=== PATIENT | female | born 1970 | race Asian ===

== ENCOUNTER → 2016-06-29 | Outpatient (CLI) | payer OTHER ==
[~2016-06-29] MED LIST: /ESOM40CA PO; DEPA500T PO; HYDR25TA8 PO; LISI20TA5 PO; MECL25TA2 PO; NASCOBAL; PERCOCET PO; TOPR100T PO
--- NOTE | 2016-06-29 15:16 | REP ---
Digital diagnostic bilateral mammography with CAD and focused left breast sonography: History: Left breast lump for the last 1 week. Painful. 8 o'clock position inferomedially. Comparison mammography August 26, 2012. Mammographic findings: A skin marker is affixed to the skin at the site of the palpable lump, which projects inferiorly and medially. Routine views of the left breast are augmented by magnified focal spot compression CC, MLO and true MLO views. Mammographic images demonstrate that the breast parenchyma remains predominately fat replaced. There is no evidence of soft tissue density, architectural distortion, skin thickening or mass lesion in the inferomedial quadrant of the left breast or elsewhere on either side. Normal appearing lymph nodes are visible on the right, unchanged. Right breast is unchanged and unremarkable. Sonographic findings: The left breast is examined sonographically in the area of the palpable lump medially. Homogeneous background fatty echotexture is seen by ultrasound. No cyst or mass is observed. No architectural distortion seen. Impression: BIRADS category 2 benign bilateral breast imaging. This negative report should not dissuade one from biopsy of a palpable lump depending on its clinical characteristics. Clinical follow-up is advised. Annual screening mammography is recommended. BI-RADS/ACR category 2 mammogram. Benign finding(s). Routine annual screening mammography (for women over age 40). This mammogram was interpreted with the aid of an FDA-approved computer-aided detection system. The patient states she/he had a clinical breast exam in June 2015. The patient letter being requested is M2 . Signed by Omega Guerra MD 06/29/2016 04:51 P
== END ==
LOC: M RAD 13:23
PROVIDERS: ATTEND Midwife
DX: N63 Unspecified lump in breast (principal); N64.4 Mastodynia

== ENCOUNTER 2016-08-17 06:48 | Emergency (ER) | payer OTHER ==
[~2016-08-17] VITALS: Ht 162.6 cm; Wt 83.9 kg
[2016-08-17 07:03] VITALS: BP 137/85
[2016-08-17] MEDS ORDERED: BENT10CA PO (07:20)
[2016-08-17] MEDS ORDERED: LEVO175T2 PO (07:20)
[2016-08-17] MEDS ORDERED: CHLO125TA PO (07:20)
[2016-08-17] MEDS ORDERED: MULTLIQ7 PO (07:20)
[2016-08-17] MEDS ORDERED: CALC500T36 PO (07:20)
[2016-08-17] MEDS ORDERED: NAPR500T2 PO (07:20)
[2016-08-17] MEDS ORDERED: ATEN25TA PO (07:20)
[2016-08-17] MEDS ORDERED: LINZ290C PO (07:20)
[2016-08-17] MEDS ORDERED: INDO50CA PO (07:47)
== END 2016-08-17 08:06 | disposition home or self-care (01) ==
LOC: M ED 07:53
DX: M79.645 Pain in left finger(s) (principal); I10 Essential (primary) hypertension; G47.00 Insomnia, unspecified; G43.909 Migraine, unspecified, not intractable, without status migrainosus; K21.9 Gastro-esophageal reflux disease without esophagitis; E89.0 Postprocedural hypothyroidism; Z85.850 Personal history of malignant neoplasm of thyroid; Z79.899 Other long term (current) drug therapy; Z88.5 Allergy status to narcotic agent; Z91.013 Allergy to seafood; Z91.018 Allergy to other foods; J30.1 Allergic rhinitis due to pollen

== ENCOUNTER → 2016-10-06 | Outpatient (CLI) | payer OTHER ==
[~2016-10-06] MED LIST changes: +ATEN25TA PO; +BENT10CA PO; +CALC500T36 PO; +CHLO125TA PO; +INDO50CA PO; +LEVO175T2 PO; +LINZ290C PO; +MULTLIQ7 PO; +NAPR500T2 PO
[2016-10-06 14:15] LABS: FREE T4 1.56 NG/DL (0.76-1.46)
== END ==
LOC: M SMT 08:10
PROVIDERS: ATTEND Physician Assistant Medical
DX: E89.0 Postprocedural hypothyroidism (principal)

== ENCOUNTER → 2016-10-10 | Outpatient (CLI) | payer OTHER ==
[2016-10-10 19:34] LABS: VITAMIN B12 LEVEL 517 PG/ML (247-911)
[2016-10-10 20:09] LABS: ALBUMIN 3.6 GM/DL (3.2-5.2); ALBUMIN/GLOBULIN RATIO 0.88 (1.00-1.93); ALKALINE PHOSPHATASE 72 U/L (45-117); ALT/SGPT 21 U/L (12-78); ANION GAP 6 MEQ/L (8-16); AST/SGOT 20 U/L (15-37); BILIRUBIN,TOTAL 0.4 MG/DL (0.2-1.0); BLOOD UREA NITROGEN 11 MG/DL (7-18); CALCIUM LEVEL 9.1 MG/DL (8.5-10.1); CARBON DIOXIDE LEVEL 32 MEQ/L (21-32); CHLORIDE LEVEL 101 MEQ/L (98-107); CREATININE FOR GFR 0.66 MG/DL (0.55-1.02); GLOMERULAR FILTRATION RATE > 60.0 (>58); GLUCOSE, FASTING 96 MG/DL (70-105); POTASSIUM SERUM 4.2 MEQ/L (3.5-5.1); SODIUM LEVEL 139 MEQ/L (136-145); TOTAL PROTEIN 7.7 GM/DL (6.4-8.2); URIC ACID 6.6 MG/DL (2.6-6.0)
[2016-10-10 20:14] LABS: BASO % 0.4 % (0.0-1.0); EOS # 0.1 K/mm3 (0.0-0.50); EOS % 1.4 % (0.0-3.0); LARGE UNSTAINED CELL # 0.2 K/mm3 (0.0-0.4); LARGE UNSTAINED CELL % 2.3 % (0.0-4.0); LYMPH # 3.1 K/mm3 (1.5-4.5); LYMPH % 39.7 % (24.0-44.0); MEAN CORPUSCULAR HEMOGLOBIN 27.2 pg (27.0-33.0); MEAN CORPUSCULAR HGB CONC 31.7 g/dl (32.0-36.5); MEAN CORPUSCULAR VOLUME 85.7 fl (80.0-96.0); MONO # 0.5 K/mm3 (0.0-0.8); NEUTROPHILS # 3.7 K/mm3 (1.8-7.7); NEUTROPHILS % 50.1 % (36.0-66.0); PLATELET COUNT, AUTOMATED 225 k/mm3 (150-450); RED CELL DISTRIBUTION WIDTH 12.6 % (11.5-14.5); WHITE BLOOD COUNT 7.4 K/mm3 (4.0-10.0)
[2016-10-10 21:14] LABS: ERYTHROCYTE SEDIMENTATION RATE 16 mm/hr (0-20)
[2016-10-13 00:06] LABS: Lyme Disease IgG/IgM Antibodie <0.91 ISR (0.00-0.90); Lyme Disease IgM Ab Quantitati <0.80 index (0.00-0.79)
== END ==
LOC: M SMT 12:19
PROVIDERS: ATTEND Internal Medicine Rheumatology
DX: M35.9 Systemic involvement of connective tissue, unspecified (principal); Z79.899 Other long term (current) drug therapy; M10.09 Idiopathic gout, multiple sites

== ENCOUNTER 2016-11-02 08:36 | Emergency (ER) | payer OTHER ==
[~2016-11-02] VITALS: Ht 162.6 cm; Wt 84.4 kg
[2016-11-02] MEDS ORDERED: KETOROLAC 60 MG/2 ML VIAL (J1885) IM ONE (09:15)
[2016-11-02 10:45] VITALS: BP 146/84
[2016-11-02] MEDS ORDERED: ULTR50TA PO (10:54)
[2016-11-02] MEDS ORDERED: VALI5TAB PO (10:54)
== END 2016-11-02 10:58 | disposition home or self-care (01) ==
LOC: M ED 09:02
DX: M54.5 Low back pain (principal); G89.29 Other chronic pain; M62.830 Muscle spasm of back; E66.9 Obesity, unspecified; I10 Essential (primary) hypertension; K58.9 Irritable bowel syndrome, unspecified; F99 Mental disorder, not otherwise specified; Z79.899 Other long term (current) drug therapy; Z88.5 Allergy status to narcotic agent; Z91.018 Allergy to other foods; Z91.013 Allergy to seafood; J30.1 Allergic rhinitis due to pollen
CPT/HCPCS: 81001; 96372; 99283; J1885; J3360

== ENCOUNTER 2017-06-06 02:09 | Emergency (ER) | payer OTHER ==
[~2017-06-06] VITALS: Ht 162.6 cm; Wt 84.1 kg
[~2017-06-06 02:09] MED LIST changes: -NAPR500T2 PO; +NAPR500T3 PO; +ULTR50TA8 PO; +VALI5TAB PO
[2017-06-06] MEDS ORDERED: SKEL800T97 PO (02:28)
[2017-06-06] MEDS ORDERED: GABA-282 PO (02:28)
[2017-06-06 02:37] LABS: MEAN CORPUSCULAR HEMOGLOBIN 28.2 pg (27.0-33.0); MEAN CORPUSCULAR HGB CONC 32.5 g/dl (32.0-36.5); MEAN CORPUSCULAR VOLUME 86.5 fl (80.0-96.0); PLATELET COUNT, AUTOMATED 266 10^3/uL (150-450); RED CELL DISTRIBUTION WIDTH 13.2 % (11.5-14.5); WHITE BLOOD COUNT 11.4 10^3/uL (4.0-10.0)
[2017-06-06] MEDS ORDERED: ASPIRIN 81 MG CHEW TABLET PO ONE (02:45)
[2017-06-06 02:55] LABS: ADD MANUAL DIFFER YES; DIFF SLIDE NUMBER 119; POSITIVE DIFF POS FLAG
[2017-06-06 02:56] LABS: INR 0.93
[2017-06-06 03:02] LABS: ALBUMIN 3.5 GM/DL (3.2-5.2); ALBUMIN/GLOBULIN RATIO 0.81 (1.00-1.93); ALKALINE PHOSPHATASE 69 U/L (45-117); ALT/SGPT 23 U/L (12-78); ANION GAP 7 MEQ/L (8-16); AST/SGOT 15 U/L (7-37); BILIRUBIN,DIRECT < 0.1 MG/DL (0.0-0.2); BILIRUBIN,TOTAL 0.2 MG/DL (0.2-1.0); BLOOD UREA NITROGEN 9 MG/DL (7-18); CALCIUM LEVEL 8.5 MG/DL (8.5-10.1); CARBON DIOXIDE LEVEL 29 MEQ/L (21-32); CHLORIDE LEVEL 104 MEQ/L (98-107); CREATININE FOR GFR 0.71 MG/DL (0.55-1.02); GLOMERULAR FILTRATION RATE > 60.0 (>58); GLUCOSE, FASTING 107 MG/DL (70-105); SODIUM LEVEL 140 MEQ/L (136-145); TOTAL PROTEIN 7.8 GM/DL (6.4-8.2)
[2017-06-06] MEDS: NITROGLYCERIN 0.4 MG SUBL TABLET SL PRN ×2 (03:09→04:16)
[2017-06-06] MEDS ORDERED: ISOVUE-370 76% 100ML VIAL (Q9967) As Ordered ONE (03:20)
[2017-06-06 03:22] LABS: BASOPHILS 2 % (0-4)
[2017-06-06 04:16] VITALS: BP 140/86
--- NOTE | 2017-06-06 04:20 | REPUSA ---
CLINICAL HISTORY: Dyspnea, exclude PE. TECHNIQUE: Multiple incremental axial, coronal and oblique images are obtained from the thoracic inle t to the upper abdomen. Intravenous contrast material was administered as per pulmonary embolism prot ocol. COMMENTS: Bilateral multifocal air trapping in the lungs. Moderate cardiomegaly. There is excellent opacification of pulmonary arterial system without evidence for pulmonary embolism . Aorta is of normal caliber without evidence for dissection or aneurysm. There is no evidence of pleural or parenchymal mass. There are no pleural effusions. There is no evid ence of hilar or mediastinal lymphadenopathy. The heart and great vessels are within normal limits. Images of the upper abdomen demonstrate no evidence of adrenal mass. The bony structures are free of lytic or blastic lesions. Multilevel degenerative changes are seen in volving the visualized thoracolumbar spine. Scattered calcifications are seen involving the aorta and major branches compatible with atherosclero sis. IMPRESSION: No evidence for pulmonary embolism. Bilateral multifocal air trapping in the lungs. Moderate cardiomegaly. Thank you for your kind referral of this patient.
[2017-06-06 08:37] VITALS: BP 163/90
[2017-06-06] MEDS ORDERED: ASPI81TA85 PO (09:19)
--- NOTE | 2017-06-06 15:45 | REP ---
Clinical: Chest pain . Comparison: 01/18/2016 . Technique: PA and lateral. Findings: The mediastinum and cardiac silhouette are normal. The lung hess are clear and without acute consolidation, effusion, or pneumothorax. The skeletal structures are intact and normal. Impression: 1. No acute cardiopulmonary process. Signed by Asif De La Garza MD 06/05/2017 11:55 P
--- NOTE | 2017-06-06 19:23 | ECGEPIP ---
Stationary ECG Study [facility] - ED Test Date: 2017-06-06 Pat Name: HIEU DYER Department: Room: - Gender: F Sawyer Helper: af : 1970 Requested By: JAYDON Hernandez Order Number: [id number] Reading MD: Stanley Nava Measurements Intervals [place] Rate: 65 P: 31 [place]: 207 QRS: -14 QRSD: 90 T: 11 QT: 404 QTc: 420 Interpretive Statements SINUS RHYTHM VOLTAGE CRITERIA FOR LVH SIMILAR TO 01/18/16 Electronically Signed On 06-06-2017 19:23:16 EST by Stanley Nava
--- NOTE | 2017-06-06 19:32 | ECGEPIP ---
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
== END 2017-06-06 09:50 | disposition home or self-care (01) ==
LOC: M ED 02:09
DX: R07.9 Chest pain, unspecified (principal); R91.8 Other nonspecific abnormal finding of lung field; I11.0 Hypertensive heart disease with heart failure; G47.30 Sleep apnea, unspecified; Z79.899 Other long term (current) drug therapy; Z88.5 Allergy status to narcotic agent; Z91.018 Allergy to other foods; Z91.013 Allergy to seafood; Z82.49 Family history of ischemic heart disease and other diseases of the circulatory system
CPT/HCPCS: 36415; 71020; 71275; 80048; 80076; 80164; 82550; 82553; 83690; 83880; 85025; 85610; 85730; 93005; 93041; 94760; 99285; Q9967

== ENCOUNTER → 2017-08-09 | Outpatient (CLI) | payer OTHER ==
[~2017-08-09] MED LIST changes: -/ESOM40CA PO; -ATEN25TA PO; -BENT10CA PO; -CALC500T36 PO; -CHLO125TA PO; -DEPA500T PO; +E-Z-GAS II EFFERVESCENT PACKET (SODIUM BICARB./CITRIC ACID/SIMETHICONE) As Ordered; +E-Z-HD 98% w/w 340GM SUSP BTL As Ordered; +E-Z-PAQUE 96% w/w SUSP 176GM BTL As Ordered; -HYDR25TA8 PO; -INDO50CA PO; -LEVO175T2 PO; -LINZ290C PO; -LISI20TA5 PO; -MECL25TA2 PO; -MULTLIQ7 PO; -NAPR500T3 PO; -NASCOBAL; -PERCOCET PO; -TOPR100T PO; -ULTR50TA8 PO; -VALI5TAB PO
== END ==
LOC: M RAD 08:48
DX: K21.9 Gastro-esophageal reflux disease without esophagitis (principal)
CPT/HCPCS: 74220

== ENCOUNTER 2018-01-08 09:30 | Emergency (ER) | payer OTHER ==
[2018-01-08 10:03] LABS: BASO % 0.2 % (0.0-1.0); EOS # 0.1 10^3/uL (0.0-0.50); HEMATOCRIT 44.1 % (36.0-47.0); HEMOGLOBIN 13.9 g/dl (12.0-15.5); IMMATURE GRANULOCYTE % 0.2 % (0-3.0); LYMPH # 2.8 10^3/uL (1.5-4.5); MEAN CORPUSCULAR HEMOGLOBIN 26.8 pg (27.0-33.0); MEAN CORPUSCULAR HGB CONC 31.5 g/dl (32.0-36.5); MONO # 0.5 10^3/uL (0.0-0.8); NEUTROPHILS # 3.2 10^3/uL (1.8-7.7); NEUTROPHILS % 47.6 % (36.0-66.0); PLATELET COUNT, AUTOMATED 219 10^3/uL (150-450); RED BLOOD COUNT 5.19 10^6/uL (4.00-5.40); RED CELL DISTRIBUTION WIDTH 13.5 % (11.5-14.5); WHITE BLOOD COUNT 6.6 10^3/uL (4.0-10.0)
[2018-01-08 10:25] LABS: ALBUMIN 3.7 GM/DL (3.2-5.2); ALBUMIN/GLOBULIN RATIO 0.93 (1.00-1.93); ALKALINE PHOSPHATASE 62 U/L (45-117); ALT/SGPT 36 U/L (12-78); ANION GAP 6 MEQ/L (8-16); AST/SGOT 20 U/L (7-37); BILIRUBIN,TOTAL 0.5 MG/DL (0.2-1.0); BLOOD UREA NITROGEN 10 MG/DL (7-18); C REACTIVE PROTEIN QUANTITATIV 0.89 MG/DL (0.00-0.30); CALCIUM LEVEL 8.8 MG/DL (8.5-10.1); CARBON DIOXIDE LEVEL 29 MEQ/L (21-32); CHLORIDE LEVEL 106 MEQ/L (98-107); CPK CREATINE PHOSPHOKINASE 75 U/L (26-192); CREATININE FOR GFR 0.66 MG/DL (0.55-1.30); GLOMERULAR FILTRATION RATE > 60.0 (>58); GLUCOSE, FASTING 88 MG/DL (70-100); POTASSIUM SERUM 3.9 MEQ/L (3.5-5.1); RHEUMATOID FACTOR QUANT 10.1 IU/ML (<15.0); SODIUM LEVEL 141 MEQ/L (136-145); TOTAL PROTEIN 7.7 GM/DL (6.4-8.2)
[2018-01-08 10:34] LABS: ERYTHROCYTE SEDIMENTATION RATE 17 mm/hr (0-20)
[2018-01-10 00:09] LABS: ANTINUCLEAR ANTIBODIES DIRECT Negative (Negative); Lyme Disease IgG/IgM Antibodie <0.91 ISR (0.00-0.90); Lyme Disease IgM Ab Quantitati <0.80 index (0.00-0.79)
== END 2018-01-08 12:49 | disposition home or self-care (01) ==
LOC: M ED 09:30
DX: R29.810 Facial weakness (principal); Z79.899 Other long term (current) drug therapy; Z79.82 Long term (current) use of aspirin; Z79.890 Hormone replacement therapy; Z88.5 Allergy status to narcotic agent; Z91.013 Allergy to seafood; Z91.018 Allergy to other foods; J30.1 Allergic rhinitis due to pollen
CPT/HCPCS: 70450

== ENCOUNTER 2018-01-13 16:28 | Emergency (ER) | payer OTHER ==
[2018-01-13] MEDS: SILVER NITRATE APPLICATOR TOP (17:48)
== END 2018-01-13 17:59 | disposition home or self-care (01) ==
LOC: M ED 16:28
DX: R04.0 Epistaxis (principal); I10 Essential (primary) hypertension; E03.9 Hypothyroidism, unspecified; K21.9 Gastro-esophageal reflux disease without esophagitis; F33.9 Major depressive disorder, recurrent, unspecified; G43.909 Migraine, unspecified, not intractable, without status migrainosus; E04.9 Nontoxic goiter, unspecified; G47.33 Obstructive sleep apnea (adult) (pediatric); I67.1 Cerebral aneurysm, nonruptured; Z79.899 Other long term (current) drug therapy; Z79.82 Long term (current) use of aspirin; Z79.890 Hormone replacement therapy; Z88.5 Allergy status to narcotic agent; Z91.013 Allergy to seafood; Z91.018 Allergy to other foods; J30.1 Allergic rhinitis due to pollen
CPT/HCPCS: 99283

== ENCOUNTER → 2018-01-23 | Outpatient (CLI) | payer OTHER ==
[~2018-01-23] MED LIST changes: -E-Z-GAS II EFFERVESCENT PACKET (SODIUM BICARB./CITRIC ACID/SIMETHICONE) As Ordered; -E-Z-HD 98% w/w 340GM SUSP BTL As Ordered; -E-Z-PAQUE 96% w/w SUSP 176GM BTL As Ordered; +METHACHOLINE KIT (J7674) INH
== END ==
LOC: M CARPUL 07:16
DX: R06.00 Dyspnea, unspecified (principal)
CPT/HCPCS: J7674

== ENCOUNTER 2018-03-29 17:54 | Emergency (ER) | payer OTHER | END 2018-03-29 19:12 | disposition home or self-care (01) | LOC: M ED 17:54 | DX: I10 Essential (primary) hypertension (principal); G44.209 Tension-type headache, unspecified, not intractable; M25.511 Pain in right shoulder; I67.1 Cerebral aneurysm, nonruptured; Z88.8 Allergy status to other drugs, medicaments and biological substances; Z88.5 Allergy status to narcotic agent; Z91.013 Allergy to seafood; J30.1 Allergic rhinitis due to pollen; Z91.018 Allergy to other foods; Z79.899 Other long term (current) drug therapy; Z79.82 Long term (current) use of aspirin | CPT/HCPCS: 99283 ==

== ENCOUNTER → 2018-09-10 | Outpatient (REF) | payer OTHER ==
[~2018-09-10] MED LIST changes: +/ESOM40CA PO; +ASPI81TA85 PO; +ATEN25TA PO; +BENT10CA PO; +CALC500T36 PO; +CHLO125TA PO; +DEPA500T PO; +GABA-843 PO; +HYDR25TA8 PO; +INDO50CA PO; +LEVO175T2 PO; +LINZ290C PO; +LISI20TA5 PO; +LOSA25TA14 PO; +MECL25TA2 PO; -METHACHOLINE KIT (J7674) INH; +MULTLIQ7 PO; +NAPR-885 PO; +NASCOBAL; +NORCOTAB PO; +PERCOCET PO; +SKEL800T97 PO; +TOPR100T PO; +ULTR50TA8 PO; +VALI5TAB PO
== END ==
LOC: M LAB REF 09:15
PROVIDERS: ATTEND Internal Medicine Gastroenterology
DX: K58.1 Irritable bowel syndrome with constipation (principal)

== ENCOUNTER → 2018-09-11 | Outpatient (CLI) | payer OTHER ==
[~2018-09-11] MED LIST changes: +ISOVUE-370 76% 125ML VIAL (Q9967 PER ML) As Ordered ONE
--- NOTE | 2018-09-11 08:39 | REP ---
CT NECK WITH CONTRAST: HISTORY: Thyroid carcinoma. CONTRAST: Isovue 370, 75 mL. COMPARISON: 02/21/2011. Calcification is present in the left tonsil. This is secondary to previous inflammatory disease. The naso-, angeline-, and hypopharynx, larynx, and subglottic trachea are otherwise normal in appearance. The salivary glands are normal in size and density. The patient is status post thyroidectomy. Small lymph nodes less than 1 cm in size are present in the internal jugular chains, posterior triangles, submandibular and submental areas. Degenerative change is present in the cervical spine. The lung apices are clear. The visualized sinuses are clear. IMPRESSION: 1. There is no neck mass or adenopathy. 2. The patient is status post thyroidectomy. Electronically Signed by Ernesto Su MD 09/11/2018 08:48 A
== END ==
LOC: M RAD 07:16
PROVIDERS: ATTEND Internal Medicine
DX: R59.1 Generalized enlarged lymph nodes (principal); Z85.850 Personal history of malignant neoplasm of thyroid; E89.0 Postprocedural hypothyroidism
CPT/HCPCS: 70491; Q9967

== ENCOUNTER 2018-10-03 11:04 | Day surgery (SDC) | payer OTHER ==
[~2018-10-03] VITALS: Ht 162.6 cm; Wt 80.7 kg
[~2018-10-03 11:04] MED LIST changes: -/ESOM40CA PO; +BENA25CA4 PO; +CALC12504 PO; -CALC500T36 PO; +DICY10CA13 PO; +DIVA500T94 PO; +EPIP0.3I2 IJ; +FLUT22IN INH; +GABA-845 PO; +HYDR-3363 PO; +HYDR-3715 PO; +IPRA6SP; -ISOVUE-370 76% 125ML VIAL (Q9967 PER ML) As Ordered ONE; +LEVO125T4 PO; +LINZ72CA PO; +LOSA50TA88 PO; +METO-745 PO; +NEXI1CAP3 PO; -NORCOTAB PO; +NS 1,000 ML IV ONE; +OMEP20CA3 PO; +PAZE1DRO OU; +PROAAER10 INH; +SUMA100T2 PO; -TOPR100T PO; +VOLT1GEL15 TOP
[2018-10-03] MEDS ORDERED: PROPOFOL 200 MG/20 ML VIAL As Ordered ONE (13:13)
[2018-10-03] MEDS ORDERED: LIDOCAINE 2% INJ 100 MG/5 ML SDV (FOR ANES.) As Ordered ONE (13:13)
--- NOTE | 2018-10-03 13:24 | ROOR ---
Patient Name: Melida Ortiz Procedure Date: 10/03/2018 1:15 PM Date of : 1970 Age: 48 Room: [facility] Gender: Female Note Status: Finalized Procedure: Upper GI endoscopy Indications: Heartburn Providers: Joseluis REYES MD Referring MD: LISA GONZALEZ MD Requesting Provider: Medicines: Monitored Anesthesia Care Complications: No immediate complications. Procedure: Pre-Anesthesia Assessment: - The heart rate, respiratory rate, oxygen saturations, blood pressure, adequacy of pulmonary ventilation, and response to care were monitored throughout the procedure. The Endoscope was introduced through the mouth, and advanced to the second part of duodenum. The upper GI endoscopy was accomplished without difficulty. The patient tolerated the procedure well. Findings: The esophagus was normal. The stomach was normal. (large volume/compliant) The examined duodenum was normal. Impression: - Normal esophagus. - Normal stomach. - Normal examined duodenum. - No specimens collected. Recommendation: - Observe patient's clinical course. - Continue present medications. - Return to referring physician. Joseluis Reyes MD Joseluis REYES MD 10/03/2018 1:23:35 PM Electronically signed by Joseluis REYES MD Number of Addenda: 0 Note Initiated On: 10/03/2018 1:15 PM Estimated Blood Loss: Estimated blood loss: none.
--- NOTE | 2018-10-03 13:35 | ROOR ---
Patient Name: Melida Ortiz Procedure Date: 10/03/2018 1:16 PM Date of : 1970 Age: 48 Room: [facility] Gender: Female Note Status: Finalized Procedure: Colonoscopy Indications: High risk colon cancer surveillance: Personal history of colonic polyps, Last colonoscopy: November 2013, Incidental change in bowel habits noted, Incidental constipation noted Providers: Joseluis REYES MD Referring MD: LISA GONZALEZ MD Requesting Provider: Medicines: Monitored Anesthesia Care Complications: No immediate complications. Procedure: Pre-Anesthesia Assessment: - The heart rate, respiratory rate, oxygen saturations, blood pressure, adequacy of pulmonary ventilation, and response to care were monitored throughout the procedure. The Colonoscope was introduced through the anus and advanced to the terminal ileum, with identification of the appendiceal orifice and IC valve. The colonoscopy was performed without difficulty. The patient tolerated the procedure well. The quality of the bowel preparation was good. Findings: The perianal and digital rectal examinations were normal. The colon (entire examined portion) appeared normal. Internal hemorrhoids were found during retroflexion. The hemorrhoids were medium-sized. Impression: - The entire colon is normal. - Internal hemorrhoids. - No specimens collected. Recommendation: - Repeat colonoscopy in 10 years for screening purposes. Joseluis Reyes MD Joseluis REYES MD 10/03/2018 1:35:11 PM Electronically signed by Joseluis REYES MD Number of Addenda: 0 Note Initiated On: 10/03/2018 1:16 PM Estimated Blood Loss: Estimated blood loss: none.
[2018-10-03 14:00] VITALS: BP 177/101
== END 2018-10-03 14:14 | disposition home or self-care (01) ==
LOC: M OPP 11:04
PROVIDERS: ATTEND Internal Medicine Gastroenterology
DX: K64.8 Other hemorrhoids (principal); R12 Heartburn; Z86.010 Personal history of colon polyps

== ENCOUNTER 2018-10-17 11:07 | Emergency (ER) | payer OTHER ==
[~2018-10-17] VITALS: Ht 162.6 cm; Wt 82.0 kg
[~2018-10-17 11:07] MED LIST changes: -INDO50CA PO; +INDO50CA11 PO; -NS 1,000 ML IV ONE
[2018-10-17 11:43] LABS: BASO % 0.4 % (0.0-1.0); EOS # 0.1 10^3/uL (0.0-0.50); EOS % 1.1 % (0.0-3.0); HEMATOCRIT 43.4 % (36.0-47.0); LYMPH # 3.1 10^3/uL (1.5-4.5); LYMPH % 38.5 % (24.0-44.0); MEAN CORPUSCULAR HEMOGLOBIN 27.5 pg (27.0-33.0); MEAN CORPUSCULAR HGB CONC 32.3 g/dl (32.0-36.5); MEAN CORPUSCULAR VOLUME 85.1 fl (80.0-96.0); MONO # 0.4 10^3/uL (0.0-0.8); MONO % 5.1 % (0.0-5.0); NEUTROPHILS # 4.4 10^3/uL (1.8-7.7); NEUTROPHILS % 54.7 % (36.0-66.0); PLATELET COUNT, AUTOMATED 246 10^3/uL (150-450)
--- NOTE | 2018-10-17 11:51 | REP ---
CT Head without contrast HISTORY: Headache COMPARISON: 01/08/2018 There is no intraparenchymal hemorrhage, acute infarct, mass or midline shift. The ventricular system is normal in appearance. There is no extra cerebral collection. There is no fracture. The visualized sinuses are clear. IMPRESSION: There is no intracranial lesion. Electronically Signed by Ernesto Su MD 10/17/2018 11:43 A
[2018-10-17 11:52] LABS: INR 0.92; PROTHROMBIN TIME 12.4 SECONDS (12.1-14.4)
[2018-10-17 11:53] LABS: PARTIAL THROMBOPLASTIN TIME 29.7 SECONDS (25.4-37.6)
--- NOTE | 2018-10-17 11:59 | REP ---
Chest one-view HISTORY: Chest pain Comparison: 06/06/2017 The lungs are clear. The heart is normal in size. The pulmonary vasculature is normal in appearance. Impression: No acute disease. Electronically Signed by Ernesto Su MD 10/17/2018 11:50 A
[2018-10-17 12:13] LABS: ALBUMIN 3.4 GM/DL (3.2-5.2); ALT/SGPT 21 U/L (12-78); BILIRUBIN,DIRECT < 0.1 MG/DL (0.0-0.2); BILIRUBIN,TOTAL 0.4 MG/DL (0.2-1.0); BLOOD UREA NITROGEN 10 MG/DL (7-18); CALCIUM LEVEL 8.4 MG/DL (8.5-10.1); CARBON DIOXIDE LEVEL 28 MEQ/L (21-32); CHLORIDE LEVEL 105 MEQ/L (98-107); CK-MB VALUE MASS < 1.0 NG/ML (<3.6); CPK CREATINE PHOSPHOKINASE 74 U/L (26-192); CREATININE FOR GFR 0.69 MG/DL (0.55-1.30); FREE T4 1.13 NG/DL (0.76-1.46); GLOMERULAR FILTRATION RATE > 60.0 (>58); GLUCOSE, FASTING 140 MG/DL (70-100); LIPASE 139 U/L (73-393); MB/CK RELATIVE INDEX 1.35 (< OR =4); POTASSIUM SERUM 3.9 MEQ/L (3.5-5.1); SODIUM LEVEL 138 MEQ/L (136-145); THYROID STIMULATING HORMONE 0.099 uIU/ML (0.358-3.740); TOTAL PROTEIN 7.6 GM/DL (6.4-8.2); TROPONIN I < 0.02 NG/ML (< 0.10)
[2018-10-17] MEDS ORDERED: ISOVUE-370 76% 100ML VIAL (Q9967) As Ordered ONE (12:41)
--- NOTE | 2018-10-17 13:42 | REP ---
CT ANGIOGRAM CHEST: TECHNIQUE: Axial contrast enhanced images from the thoracic inlet to the upper abdomen using 100 mL Isovue 370 intravenous contrast material with multiplanar reformations. The pulmonary arteries opacify well with contrast with no CT evidence of pulmonary embolism. There is no thoracic aortic aneurysm or dissection. The heart is normal in size. There is no mediastinal, hilar, or chest wall lymphadenopathy. There is no pleural or pericardial effusion. Small calcified granulomas seen in the right lower lobe. No infiltrate is seen in either lung. Patient has had a prior cholecystectomy. There are mild degenerative changes of the spine. IMPRESSION: No CT evidence of pulmonary embolism or aortic dissection. Electronically Signed by Ke Guy MD 10/18/2018 12:19 P
[2018-10-17 17:18] LABS: CK-MB VALUE MASS < 1.0 NG/ML (<3.6); CPK CREATINE PHOSPHOKINASE 74 U/L (26-192); MB/CK RELATIVE INDEX 1.35 (< OR =4); TROPONIN I < 0.02 NG/ML (< 0.10)
[2018-10-17 17:34] VITALS: BP 160/92
--- NOTE | 2018-10-17 22:16 | ECGEPIP ---
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 Order Number: [id number] Reading MD: Jimena Dhaliwal Measurements Intervals [place] Rate: 79 P: 17 [place]: 178 QRS: -22 QRSD: 99 T: 49 QT: 380 QTc: 436 Interpretive Statements SINUS RHYTHM BORDERLINE LEFT AXIS DEVIATION VOLTAGE CRITERIA FOR LVH NONSPECIFIC T-WAVE ABNORMALITY INCREASED RATE 01/08/18 Electronically Signed On 10-17-2018 22:16:46 EDT by Jimena Dhaliwal
--- NOTE | 2018-10-17 22:18 | ECGEPIP ---
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
--- NOTE | 2018-10-17 22:23 | ECGEPIP ---
Stationary ECG Study [facility] - ED Test Date: 2018-10-17 Pat Name: HIEU DYER Department: Room: - Gender: F Sessions Clerk: TC : 1970 Requested By: NASRA LINDA Order Number: [id number] Reading MD: Jimena Dhaliwal Measurements Intervals [place] Rate: 77 P: 12 [place]: 177 QRS: -17 QRSD: 96 T: 46 QT: 400 QTc: 455 Interpretive Statements SINUS RHYTHM VOLTAGE CRITERIA FOR LVH NSTTW ABNORMALITY SIMILAR 12:23 Electronically Signed On 10-17-2018 22:22:29 EDT by Jimean Dhaliwal
== END 2018-10-17 17:36 | disposition home or self-care (01) ==
LOC: M ED 11:07
DX: R07.9 Chest pain, unspecified (principal); R06.02 Shortness of breath; E11.9 Type 2 diabetes mellitus without complications; I10 Essential (primary) hypertension; Z79.899 Other long term (current) drug therapy; Z79.890 Hormone replacement therapy; Z79.82 Long term (current) use of aspirin; Z88.5 Allergy status to narcotic agent; Z88.8 Allergy status to other drugs, medicaments and biological substances; Z91.013 Allergy to seafood; Z91.018 Allergy to other foods; J30.1 Allergic rhinitis due to pollen
CPT/HCPCS: 36415; 70450; 71045; 71275; 80048; 80076; 82550; 82553; 83690; 84439; 84443; 84484; 85025; 85610; 85730; 93005; 93041; 94760; 99285; Q9967

== ENCOUNTER → 2018-12-13 | Outpatient (CLI) | payer OTHER ==
--- NOTE | 2018-12-13 14:35 | REP ---
Clinical: History of papillary thyroid carcinoma with hypothyroidism. Technique: Real time ferguson scale and color evaluation using linear high frequency transducer. Findings: Evidence for prior total thyroidectomy. No fluid collection or abnormal mass lesion/recurrence is appreciated. To lymph nodes identified along the right side of the neck measuring 16 x 6 x 11 mm and 16 x 4 x 9 mm noted. Impression: Evidence for prior right thyroidectomy. No recurrent mass lesion or fluid. Electronically Signed by Asif De La Garza MD 12/13/2018 02:27 P
== END ==
LOC: M RAD 14:00
PROVIDERS: ATTEND Internal Medicine
DX: C73 Malignant neoplasm of thyroid gland (principal); E89.0 Postprocedural hypothyroidism

== ENCOUNTER → 2019-01-03 | Outpatient (REF) | payer OTHER ==
[~2019-01-03] MED LIST changes: -CALC12504 PO; +CALC500T61 PO; -OMEP20CA3 PO; +OMEP20CA4 PO
== END ==
LOC: M SFHCPLAZ 17:12
PROVIDERS: ATTEND Dermatology
DX: D49.2 Neoplasm of unspecified behavior of bone, soft tissue, and skin (principal)

== ENCOUNTER → 2019-03-07 | Outpatient (CLI) | payer OTHER ==
[~2019-03-07] MED LIST changes: -INDO50CA11 PO; +INDO50CA91 PO
--- NOTE | 2019-03-12 13:59 | SLEEPCENT ---
DATE OF STUDY: 03/07/2019 ORDERING PROVIDER: SEPIDEH Carlos Nocturnal polysomnography was performed for evaluation of sleep physiology in this patient with a history of excessive somnolence, morning headaches, and nonrestorative sleep, who has comorbidities of acid reflux and prediabetes. 8 hours and 1 minute data were reviewed. There were 415.5 minutes of sleep identified. Sleep latency was prolonged at 40 minutes. Rapid eye movement (REM) latency was prolonged at 129 minutes. Sleep architecture was fair with three REM cycles. Overall sleep efficiency 87.5%. The patient's electrocardiogram showed sinus rhythm with an average heart rate of 70 beats per minute. Electroencephalogram (EEG) showed reasonably normal waveforms for awake and sleep. There were 508 respiratory events identified of 10 seconds in duration or greater for an apnea-hypopnea index of 73.4. The events were primarily obstructive, not exclusive to sleep stage nor body posture. Arousals from respiratory events occurred 7.8 times per hour, and oxygen desaturations were seen into the low 80s. There was some activity noted in the limb electromyelogram (EMG) leads, but arousals from limb events were few. IMPRESSION: Severe obstructive sleep apnea syndrome (G47.33). Apnea-hypopnea index 73.4. RECOMMENDATIONS: The patient should be encouraged to return to the sleep disorder center for pressure therapy. In the interim, alcohol and sedative avoidance should be practiced and caution exercised during the operation of motor vehicles.
== END ==
LOC: M SLEEP 19:35
PROVIDERS: ATTEND Physician Assistant
DX: G47.33 Obstructive sleep apnea (adult) (pediatric) (principal)

== ENCOUNTER → 2019-03-14 | Outpatient (CLI) | payer OTHER ==
[~2019-03-14] MED LIST changes: +ISOVUE-370 76% 100ML VIAL (Q9967) As Ordered ONE
--- NOTE | 2019-03-14 15:02 | REP ---
CT ABDOMEN PELVIS WITHOUT AND WITH IV CONTRAST: Without oral contrast. HISTORY: Post cholecystectomy. Lower abdominal cramping and pain. History of IBS. The patient gives a history of previous cholecystectomy, hysterectomy, and previous appendectomy. CT CONTRAST DOSE: 100 mL of intravenous Isovue [address] study January 17, 2015. CT FINDINGS: Digital preliminary placement coordinator radiograph demonstrates clips in the right upper quadrant. Bowel gas pattern is normal. The lung bases are clear on axial CT images. There is no evidence of pleural effusion or upper abdominal ascites. There is mild diffuse fatty infiltration of the liver. No focal hepatic or splenic lesion is seen. There is a granulomatous calcification at the inferior tip of the liver. There are clips in the gallbladder fossa. No abnormal fluid collection is seen. No pancreatic abnormality is noted. No adrenal lesion is seen. The kidneys enhance symmetrically and are morphologically intact. No intrarenal calculus or hydronephrosis is seen. No retroperitoneal mass or adenopathy is observed. Small and large bowel loops are unremarkable in the abdomen and pelvis. No ovarian mass or cyst is seen. Urinary bladder is unremarkable. No abdominal wall defect is seen. No bony destructive lesion is observed. IMPRESSION: Post cholecystectomy, appendectomy, and hysterectomy. Fatty infiltration of the liver. Otherwise unremarkable CT study abdomen and pelvis. Electronically Signed by Omega Guerra MD 03/14/2019 03:33 P
== END ==
LOC: M RAD 12:36
PROVIDERS: ATTEND Family Medicine
DX: R10.9 Unspecified abdominal pain (principal)

== ENCOUNTER → 2019-03-30 | Outpatient (CLI) | payer OTHER ==
[~2019-03-30] MED LIST changes: +CLEO300C2 PO; -ISOVUE-370 76% 100ML VIAL (Q9967) As Ordered ONE
--- NOTE | 2019-04-05 09:16 | SLEEPCENT ---
DATE OF STUDY: 03/30/2019 ORDERED BY: Asif Wilson Nocturnal polysomnography was performed for the titration of pressure therapy in this patient with obstructive sleep apnea syndrome and apnea-hypopnea index of 73.4. For testing, the patient was fit with a ResMed AirFit N20 nasal pillows device of medium size and 5 cm of water pressure were applied to the circuit and the lights were extinguished. 6 hours and 51 minutes of data were reviewed. There were 372 minutes of sleep identified. Sleep latency was short at 4 minutes. Rapid eye movement (REM) latency was prolonged at 141 minutes. Sleep architecture was fair with some fragmentation early on. There were 2 REM cycles noted. Overall sleep efficiency was 91.5%. The patient's electrocardiogram showed a sinus rhythm with an average heart rate of 82 beats per minute. Electroencephalogram (EEG) showed normal waveforms for awake and sleep. Respiratory events were fully palliated with C-PAP at a pressure +5. Some limb activity was noted early in the study. There were 2 trains of 30 events and the limb movement arousal index was 7.3. IMPRESSION: Obstructive sleep apnea syndrome (G47.33). RECOMMENDATION: Nightly use of pressure therapy at 5 cm of water.
== END ==
LOC: M SLEEP 20:00
PROVIDERS: ATTEND Physician Assistant
DX: G47.33 Obstructive sleep apnea (adult) (pediatric) (principal)

== ENCOUNTER 2019-04-05 11:14 | Emergency (ER) | payer OTHER ==
[~2019-04-05] VITALS: Ht 162.6 cm; Wt 84.2 kg
[~2019-04-05 11:14] MED LIST changes: -CLEO300C2 PO
[2019-04-05 12:12] LABS: BASO % 0.2 % (0.0-1.0); EOS # 0.1 10^3/uL (0.0-0.5); EOS % 1.1 % (0.0-3.0); HEMATOCRIT 41.4 % (36.0-47.0); HEMOGLOBIN 13.6 g/dl (12.0-15.5); LYMPH # 2.6 10^3/uL (1.5-5.0); LYMPH % 31.7 % (24.0-44.0); MEAN CORPUSCULAR HEMOGLOBIN 28.6 pg (27.0-33.0); MEAN CORPUSCULAR HGB CONC 32.9 g/dl (32.0-36.5); MONO # 0.5 10^3/uL (0.0-0.8); NEUTROPHILS % 60.8 % (36.0-66.0); PLATELET COUNT, AUTOMATED 239 10^3/uL (150-450); RED BLOOD COUNT 4.76 10^6/uL (4.00-5.40); WHITE BLOOD COUNT 8.3 10^3/uL (4.0-10.0)
[2019-04-05] MEDS ORDERED: DICYCLOMINE 10 MG CAP PO ONE (12:15)
--- NOTE | 2019-04-05 12:41 | REP ---
Right foot: Four views. History: Erythema. Swelling. Status post ingrown toenail removal. Findings: Four views of the right foot demonstrate overall normal mineralization. Plantar and Achilles calcaneal spurs are noted. No opaque foreign body or soft tissue gas is seen. No fractures noted. No erosive changes seen. Impression: No acute bony abnormality. Electronically Signed by Omega Guerra MD 04/05/2019 12:32 P
[2019-04-05 12:57] LABS: ERYTHROCYTE SEDIMENTATION RATE 38 mm/hr (0-20)
[2019-04-05] MEDS ORDERED: CLEO300C2 PO (13:02)
[2019-04-05] MEDS ORDERED: ACETAMINOPHEN 325 MG TAB PO ONE (13:15)
[2019-04-05 13:26] VITALS: BP 120/82
== END 2019-04-05 13:31 | disposition home or self-care (01) ==
LOC: M ED 11:14
DX: L03.031 Cellulitis of right toe (principal); I10 Essential (primary) hypertension; K21.9 Gastro-esophageal reflux disease without esophagitis; G43.909 Migraine, unspecified, not intractable, without status migrainosus; Z79.899 Other long term (current) drug therapy; Z79.82 Long term (current) use of aspirin; Z88.5 Allergy status to narcotic agent; Z88.8 Allergy status to other drugs, medicaments and biological substances; Z91.018 Allergy to other foods; J30.1 Allergic rhinitis due to pollen

== ENCOUNTER → 2019-06-27 | Outpatient (CLI) | payer OTHER ==
[~2019-06-27] MED LIST changes: +CLEO300C2 PO; +OMEP-172 PO; -OMEP20CA4 PO
--- NOTE | 2019-06-27 11:13 | REP ---
Gastric emptying nuclear scintigraphy: History: Gastroparesis. Technique: 1.07 mCi of technetium-99m sulfur colloid was ingested in two scrambled eggs and 6 ounces of water and sequential anterior and posterior images are acquired for an 89-minute imaging observation period. Regions of interest are drawn around the stomach to plot gastric emptying. Scintigraphic findings: Expected T1/2 is 90 minutes. 44 % emptying is observed in this patient during the 89-minute imaging observation period, for a calculated T1/2 in this patient of 85 minutes. Impression: Normal gastric emptying. Electronically Signed by Omega Guerra MD 06/27/2019 11:03 A
== END ==
LOC: M RAD 07:37
PROVIDERS: ATTEND Internal Medicine Gastroenterology
DX: K31.84 Gastroparesis (principal)

== ENCOUNTER → 2019-06-27 | Outpatient (CLI) | payer OTHER ==
[~2019-06-27] MED LIST changes: +ISOVUE-370 76% 100ML VIAL (Q9967) As Ordered ONE; -OMEP-172 PO; +OMEP1CAP73 PO
--- NOTE | 2019-06-27 10:47 | REP ---
INDICATION: Right-sided lump. PROCEDURE: CT cervical spine CT of the neck with contrast. COMPARISON STUDIES: No prior similar studies. FINDINGS: There are scattered cervical chain lymph nodes without evidence of lymphadenopathy. There is a slightly more prominent node at mid neck, just below the angle of the mandible and medially, anterior to the sternocleidomastoid on the right measures approximately 17 mm in long axis by 8 mm transverse. The remainder of the nodes are smaller. Oropharynx, nasopharynx, hypopharynx and larynx appear unremarkable. Osseous structures unremarkable. There is mild straightening of the cervical spine and some normal cervical lordosis. The cervical canal appears patent and neural foramen appear widely patent. Lung apices are clear. IMPRESSION: Scattered cervical chain lymph nodes with a slightly more prominent lymph node on the right as described. If continued concern, directed ultrasound would be appropriate. Electronically Signed by Ted Phillips MD 06/27/2019 10:39 A
== END ==
LOC: M RAD 09:36
DX: Z85.850 Personal history of malignant neoplasm of thyroid (principal); K31.84 Gastroparesis
CPT/HCPCS: 70491; 78264; A9541; Q9967

== ENCOUNTER 2019-11-04 21:28 | Emergency (ER) | payer OTHER ==
[~2019-11-04] VITALS: Ht 162.6 cm; Wt 85.5 kg
[~2019-11-04 21:28] MED LIST changes: -ISOVUE-370 76% 100ML VIAL (Q9967) As Ordered ONE
[2019-11-04] MEDS ORDERED: MONT10TA4 PO (21:45)
[2019-11-04] MEDS ORDERED: FLUOCRE EX (21:45)
[2019-11-04] MEDS ORDERED: VANI1CRE5 EX (21:45)
[2019-11-04] MEDS ORDERED: AMLO10TA5 PO (21:45)
[2019-11-04] MEDS ORDERED: NORCO, ANEXSIA 5/325MG TABLET (HYDROcodone/ACETAMINOPHEN) PO ONE (22:15)
[2019-11-04] MEDS ORDERED: LIDOCAINE 4% CREAM 5GM (LMX4) TOP ONE (22:15)
[2019-11-04] MEDS ORDERED: ASPE16CR TOP (22:44)
[2019-11-04] MEDS ORDERED: HYDR-3715 PO (22:44)
[2019-11-04] MEDS ORDERED: NORCO 5/325MG TABLET (BULK FOR ED) PO ONE (22:45)
[2019-11-04 22:57] VITALS: BP 136/84
== END 2019-11-04 22:59 | disposition home or self-care (01) ==
LOC: M ED 21:28
DX: M79.642 Pain in left hand (principal); T80.89XA Other complications following infusion, transfusion and therapeutic injection, initial encounter; X58.XXXA Exposure to other specified factors, initial encounter; Y92.89 Other specified places as the place of occurrence of the external cause; I10 Essential (primary) hypertension; J45.909 Unspecified asthma, uncomplicated; E03.8 Other specified hypothyroidism; Z79.899 Other long term (current) drug therapy; Z88.5 Allergy status to narcotic agent; Z88.8 Allergy status to other drugs, medicaments and biological substances; Z91.018 Allergy to other foods

== ENCOUNTER → 2020-02-13 | Outpatient (CLI) | payer OTHER ==
[~2020-02-13] MED LIST changes: +ADVA230A INH; +AMLO1TAB25 PO; +AMLO25TA PO; +ASPE16CR TOP; -ASPI81TA85 PO; +ASPI81TA86 PO; +ECOT81TA5 PO; +FLUOCRE EX; +HYZA100T6 PO; +MONT10TA4 PO; +PREM.6256 PO; +VANI1CRE5 EX
--- NOTE | 2020-03-02 18:04 | REP ---
THYROID SONOGRAPHY HISTORY: Hypothyroidism. Postsurgical. Neck mass. History of thyroid cancer. COMPARISON: Soft tissue neck CT study 06/27/2019. SONOGRAPHIC FINDINGS: The thyroid gland is surgically absent. No thyroid tissue is visible in the neck in the thyroid bed. More superior than the thyroid bed in the area of the palpable abnormality on the right, there are two hypoechoic nodules which appear to have echogenic hilar architecture. These may be lymph nodes. They measure 8 x 8 x 6 mm and 6 x 5 x 6 mm respectively. If these are lymph nodes, the cortical margin appears somewhat thickened. No other mass or cyst is seen. IMPRESSION: There are two hypoechoic oval nodules with evidence of hilar notch as above measuring 8 and 6 mm in greatest diameter respectively. Nonspecific findings. MTDD
== END ==
LOC: M RAD 06:19
PROVIDERS: ATTEND Internal Medicine
DX: E89.0 Postprocedural hypothyroidism (principal); R22.1 Localized swelling, mass and lump, neck; Z85.850 Personal history of malignant neoplasm of thyroid

== ENCOUNTER 2020-03-11 11:41 | Emergency (ER) | payer OTHER ==
[~2020-03-11] VITALS: Ht 162.6 cm; Wt 84.1 kg
[~2020-03-11 11:41] MED LIST changes: -ADVA230A INH; -AMLO25TA PO; -ECOT81TA5 PO; -HYZA100T6 PO; -PREM.6256 PO
[2020-03-11] MEDS ORDERED: ECOT81TA5 PO (11:56)
[2020-03-11] MEDS ORDERED: HYZA100T6 PO (12:01)
[2020-03-11] MEDS ORDERED: ADVA230A INH (12:01)
[2020-03-11] MEDS ORDERED: AMLO25TA PO (12:01)
[2020-03-11 12:39] LABS: BASO % 0.3 % (0.0-1.0); EOS # 0.1 10^3/uL (0.0-0.5); EOS % 1.4 % (0.0-3.0); HEMATOCRIT 41.6 % (36.0-47.0); LYMPH # 2.9 10^3/uL (1.5-5.0); LYMPH % 43.1 % (24.0-44.0); MEAN CORPUSCULAR HEMOGLOBIN 25.9 pg (27.0-33.0); MEAN CORPUSCULAR HGB CONC 31.3 g/dl (32.0-36.5); MEAN CORPUSCULAR VOLUME 82.9 fl (80.0-96.0); MONO # 0.5 10^3/uL (0.0-0.8); MONO % 7.2 % (0.0-5.0); NEUTROPHILS # 3.2 10^3/uL (1.5-8.5); NEUTROPHILS % 47.7 % (36.0-66.0); PLATELET COUNT, AUTOMATED 279 10^3/uL (150-450); RED BLOOD COUNT 5.02 10^6/uL (4.00-5.40); WHITE BLOOD COUNT 6.6 10^3/uL (4.0-10.0)
--- NOTE | 2020-03-11 13:01 | REPVR ---
PROCEDURE INFORMATION: Exam: XR Chest, 1 View Exam date and time: 03/11/2020 12:47 PM Age: 49 years old Clinical indication: Other: Syncope; Additional info: Syncope/near-syncope TECHNIQUE: Imaging protocol: XR of the chest Views: 1 view. COMPARISON: CR PORTABLE CHEST X-RAY 10/17/2018 11:40 AM FINDINGS: Lungs: Unremarkable. No consolidation. Pleural space: Unremarkable. No pleural effusion. No pneumothorax. Heart/Mediastinum: Unremarkable. No cardiomegaly. Bones/joints: Unremarkable. Intraperitoneal space: Right upper quadrant surgical clips. IMPRESSION: No acute findings. Electronically signed by: Pam Charles On 03/11/2020 13:01:15 PM
--- NOTE | 2020-03-11 13:03 | REPVR ---
PROCEDURE INFORMATION: Exam: XR Left Ankle Exam date and time: 03/11/2020 12:47 PM Age: 49 years old Clinical indication: Pain; Left; Patient HX: PT states had recent injection in ankle and tried to walk and became faint; Additional info: Syncope/near-syncope TECHNIQUE: Imaging protocol: XR Left ankle. Views: 3 or more views. COMPARISON: No relevant prior studies available. FINDINGS: Bones/joints: No acute fracture. No dislocation. Posterior and plantar calcaneal enthesophytes. Soft tissues: Normal. IMPRESSION: No acute osseous abnormality. Electronically signed by: Pam Charles On 03/11/2020 13:02:52 PM
[2020-03-11 13:13] LABS: BLOOD UREA NITROGEN 9 MG/DL (7-18); CALCIUM LEVEL 9.2 MG/DL (8.5-10.1); CARBON DIOXIDE LEVEL 29 MEQ/L (21-32); CHLORIDE LEVEL 103 MEQ/L (98-107); CREATININE FOR GFR 0.73 MG/DL (0.55-1.30); GLOMERULAR FILTRATION RATE > 60.0 (>58); GLUCOSE, FASTING 105 MG/DL (70-100); MAGNESIUM LEVEL 2.4 MG/DL (1.8-2.4); POTASSIUM SERUM 3.6 MEQ/L (3.5-5.1); SODIUM LEVEL 136 MEQ/L (136-145)
[2020-03-11 19:47] VITALS: BP 127/71
--- NOTE | 2020-03-11 20:54 | ECGEPIP ---
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
--- NOTE | 2020-03-12 17:53 | ECGEPIP ---
[facility] - ED Test Date: 2020-03-11 Pat Name: HIEU DYER Department: Room: - Gender: Female Director Of Product Marketing: tyrone : 1970 Requested By: Jimena Dhaliwal Order Number: [id number] Reading MD: Joseluis Garcia Measurements Intervals [place] Rate: 74 P: 47 [place]: 202 QRS: -16 QRSD: 100 T: 21 QT: 426 QTc: 474 Interpretive Statements SINUS RHYTHM LEFT VENTRICULAR HYPERTROPHY by aVL criteria Nonspecific ST-T wave abnormalities Similar to tracing done same date at 12:07 Electronically Signed on 03-12-2020 17:52:48 EDT by Joseluis Garcia
[2020-03-15] MEDS ORDERED: PREM.6256 PO (11:29)
== END 2020-03-11 19:50 | disposition home or self-care (01) ==
LOC: M ED 11:41 → EDBD 11:41 → M ED 19:50
DX: S93.402A Sprain of unspecified ligament of left ankle, initial encounter (principal); X50.0XXA Overexertion from strenuous movement or load, initial encounter; Y92.531 Health care provider office as the place of occurrence of the external cause; Y99.9 Unspecified external cause status; R55 Syncope and collapse; I10 Essential (primary) hypertension; J45.909 Unspecified asthma, uncomplicated; E03.9 Hypothyroidism, unspecified; Z88.6 Allergy status to analgesic agent; Z91.013 Allergy to seafood; F17.200 Nicotine dependence, unspecified, uncomplicated; Z79.51 Long term (current) use of inhaled steroids; Z79.899 Other long term (current) drug therapy; Z79.82 Long term (current) use of aspirin

== ENCOUNTER → 2020-03-17 | Outpatient (CLI) | payer OTHER ==
[~2020-03-17] MED LIST changes: +ADVA230A INH; +AMLO25TA PO; +ECOT81TA5 PO; +HYZA100T6 PO; +LIDOCAINE 1% MDV 20ML VIAL As Ordered ONE; +PREM.6256 PO; +SODIUM BICARBONATE 8.4% INJ 50MEQ 50 ML VIAL As Ordered ONE
[2020-03-17 13:15] VITALS: BP 138/87
--- NOTE | 2020-03-23 13:59 | REP ---
ULTRASOUND-GUIDED LYMPH NODE FINE NEEDLE ASPIRATION (FNA) This procedure was performed by MARIBEL Moon, under the direct supervision of Dr. Guy. The risks and benefits of the procedure were explained to the patient and an informed consent was obtained both verbally and written. Directly prior to the start of the procedure, a formal time-out was done in the procedure room. The patient was consented for both an FNA or a core biopsy procedure. The palpable lymph node inferior to the patients right jaw line was localized under ultrasound guidance. Due to the location of the lymph node, an FNA was decided upon. The skin was prepped and draped in a sterile fashion. Approximately 3 mL of buffered Lidocaine was used as a local anesthetic. Using ultrasound guidance, eight fine needle aspirations were obtained using 25-gauge needles. The patient tolerated the procedure extremely well, and there were no immediate complications. After the appropriate amount of monitored convalescence, the patient was discharged from the department. This exam has been dictated by MARIBEL Moon with Dr. Guy. [facility]
== END ==
LOC: M IRPRO 11:44
PROVIDERS: ATTEND Internal Medicine
DX: R22.1 Localized swelling, mass and lump, neck (principal); Z85.850 Personal history of malignant neoplasm of thyroid; E89.0 Postprocedural hypothyroidism

== ENCOUNTER → 2020-05-10 | Outpatient (CLI) | payer OTHER ==
[~2020-05-10] MED LIST changes: +GASTROGRAFIN SOLUTION 30ML (Q9963) As Ordered ONE; +ISOVUE-370 76% 100ML VIAL As Ordered ONE; -LIDOCAINE 1% MDV 20ML VIAL As Ordered ONE; -SODIUM BICARBONATE 8.4% INJ 50MEQ 50 ML VIAL As Ordered ONE
--- NOTE | 2020-05-10 10:48 | REP ---
INDICATION: LEFT UPPER QUADRANT ABD TENDERNESS. COMPARISON: 03/14/2019 TECHNIQUE: Axial contrast-enhanced images from the lung bases to the pubic symphysis using 100 cc Isovue 370 intravenous contrast material. Delayed images of the abdomen along with coronal and sagittal reformations obtained.. This CT examination was performed using the following dose reduction techniques: Automated exposure control, adjustment of mA and/or kv according to the patient's size, and the use of iterative reconstruction technique. FINDINGS: Mild hepatosteatosis is suggested without focal hepatic lesion. Evidence for prior cholecystectomy. Spleen, pancreas, bilateral adrenal glands and kidneys are normal. The enteric system including stomach, small, and large bowel appears normal. No evidence for obstruction or acute inflammatory process. Normal terminal ileum and cecum are identified in the right lower quadrant. Pelvis demonstrates normal bladder and evidence for prior hysterectomy. Few scattered sigmoid diverticula noted without acute diverticulitis. No ascites. No free air. No intraperitoneal or retroperitoneal adenopathy. Abdominal aorta and vasculature appear normal. Musculoskeletal structures are intact and without acute osseous abnormality. IMPRESSION: No acute abdominopelvic pathology appreciated. Hepatosteatosis. Evidence for prior cholecystectomy, hysterectomy, and appendectomy. No ascites, focal inflammatory stranding, or adenopathy. Few scattered sigmoid diverticula without acute diverticulitis. <Electronically signed by Asif De La Garza > 05/10/20 [id number]
== END ==
LOC: M RAD 07:46
PROVIDERS: ATTEND Student in an Organized Health Care Education/Training Program
DX: R10.12 Left upper quadrant pain (principal); K76.0 Fatty (change of) liver, not elsewhere classified; K57.30 Diverticulosis of large intestine without perforation or abscess without bleeding

== ENCOUNTER 2020-06-06 20:48 | Inpatient (IN) | payer OTHER ==
[~2020-06-06] VITALS: Ht 160 cm; Wt 82.2 kg
[~2020-06-06 20:48] MED LIST changes: -GASTROGRAFIN SOLUTION 30ML (Q9963) As Ordered ONE; -ISOVUE-370 76% 100ML VIAL As Ordered ONE; -MONT10TA4 PO; +MONT5TAB2 PO
[2020-06-06] MEDS ORDERED: METF500T13 PO (20:59)
[2020-06-06] MEDS ORDERED: ONDANSETRON 4MG/2ML VIAL IV ONE (21:30)
[2020-06-06] MEDS ORDERED: NS 1,000 ML IV ONE (21:30)
[2020-06-06] MEDS ORDERED: fentaNYL 100 MCG/2 ML INJECTION (J3010) IV ONE ×2 (21:30→23:30)
[2020-06-06 21:57] LABS: BASO % 0.3 % (0.0-1.0); EOS # 0.1 10^3/uL (0.0-0.5); EOS % 0.7 % (0.0-3.0); HEMATOCRIT 40.4 % (36.0-47.0); HEMOGLOBIN 12.7 g/dl (12.0-15.5); LYMPH # 3.8 10^3/uL (1.5-5.0); LYMPH % 28.6 % (24.0-44.0); MEAN CORPUSCULAR HEMOGLOBIN 25.9 pg (27.0-33.0); MEAN CORPUSCULAR HGB CONC 31.4 g/dl (32.0-36.5); MEAN CORPUSCULAR VOLUME 82.3 fl (80.0-96.0); MONO # 1.2 10^3/uL (0.0-0.8); NEUTROPHILS # 8.1 10^3/uL (1.5-8.5); NEUTROPHILS % 61.2 % (36.0-66.0); PLATELET COUNT, AUTOMATED 271 10^3/uL (150-450); RED BLOOD COUNT 4.91 10^6/uL (4.00-5.40); WHITE BLOOD COUNT 13.2 10^3/uL (4.0-10.0)
[2020-06-06] MEDS ORDERED: GASTROGRAFIN SOLUTION 30ML (Q9963) As Ordered ONE (22:05)
[2020-06-06] MEDS: GASTROGRAFIN SOLUTION 30ML PO SCH ×2 (22:18→22:23)
[2020-06-06 22:22] LABS: ALBUMIN 3.4 GM/DL (3.2-5.2); ALT/SGPT 27 U/L (12-78); BILIRUBIN,DIRECT 0.1 MG/DL (0.0-0.2); BILIRUBIN,TOTAL 0.5 MG/DL (0.2-1.0); BLOOD UREA NITROGEN 9 MG/DL (7-18); CALCIUM LEVEL 8.9 MG/DL (8.5-10.1); CARBON DIOXIDE LEVEL 28 MEQ/L (21-32); CHLORIDE LEVEL 102 MEQ/L (98-107); CK-MB VALUE MASS < 1.0 NG/ML (<3.6); CPK CREATINE PHOSPHOKINASE 78 U/L (26-192); CREATININE FOR GFR 0.66 MG/DL (0.55-1.30); GLOMERULAR FILTRATION RATE > 60.0 (>58); GLUCOSE, FASTING 92 MG/DL (70-100); LIPASE 109 U/L (73-393); MB/CK RELATIVE INDEX 1.28 (< OR =4); POTASSIUM SERUM 3.9 MEQ/L (3.5-5.1); SODIUM LEVEL 137 MEQ/L (136-145); TOTAL PROTEIN 7.7 GM/DL (6.4-8.2); TROPONIN I < 0.02 NG/ML (< 0.10)
[2020-06-06] MEDS ORDERED: ISOVUE-370 76% 100ML VIAL As Ordered ONE (23:21)
--- NOTE | 2020-06-07 00:25 | REPVR ---
PROCEDURE INFORMATION: Exam: CT Abdomen And Pelvis With Contrast Exam date and time: 06/06/2020 9:28 PM Age: 50 years old Clinical indication: Abdominal pain; Localized; Right lower quadrant (rlq); Additional info: Rlq abd pain, HX of appendectomy TECHNIQUE: Imaging protocol: Computed tomography of the abdomen and pelvis with intravenous contrast. Radiation optimization: All CT scans at this facility use at least one of these dose optimization techniques: automated exposure control; mA and/or kV adjustment per patient size (includes targeted exams where dose is matched to clinical indication); or iterative reconstruction. Contrast material: ISO; Contrast volume: 100 ml; Contrast route: INTRAVENOUS (IV); Other contrast: Oral, ggraphin, 600; COMPARISON: 1. CT ABD PELVIS WITH CONTRAST 05/10/2020 10:[address] ABD PELVIS W/O FOL BY WIT 03/14/2019 12:58:01 PM FINDINGS: Lungs: The imaged portions of the lung bases are clear. The lungs were not fully imaged. Heart: No cardiomegaly or pericardial effusion. Liver: There is a 12 mm homogeneously enhancing lesion in the posterosuperior segment 7 of the right hepatic lobe (image 30 of the axial series 201), which is stable compared to the prior CT abdomen and pelvis on 03/14/2019 and may represent a flash filling hemangioma or transient hepatic attenuation difference, for which further follow-up is not necessary. There is a 2 mm calcified granuloma in the posterosuperior segment 7 of the right hepatic lobe, which is unchanged compared to the prior CT abdomen and pelvis on 05/10/2020. The attenuation of the liver is lower compared to the spleen, which can be seen with fatty liver infiltration. The contour of the liver is smooth. No hepatomegaly is noted. Gallbladder and bile ducts: There has been a cholecystectomy. There is no fluid collection in the gallbladder fossa. No dilation of the bile ducts is noted. No calcified stones are seen in the common bile duct. Pancreas: Normal. No dilation of the main pancreatic duct is noted. There is no inflammatory fat stranding around the pancreas to suggest acute pancreatitis. Spleen: Normal. No splenomegaly is noted. Adrenal glands: Normal. No adrenal mass is noted. Kidneys and ureters: The kidneys are normal in appearance. No renal lesion is noted. No stones are noted in the kidneys or ureters. There is no hydronephrosis or hydroureter. There are no wedge-shaped areas of low attenuation in the kidneys to suggest pyelonephritis. There is no renal abscess or perinephric fluid collection. Stomach and bowel: The stomach is decompressed, limiting its optimal evaluation. There is masslike thickening involving the wall of the terminal ileum, cecum, and ascending colon at the ileocecal valve and inflammatory fat stranding around a cecal diverticulum (image 97 of the axial series 201 and images 44-54 of the coronal series 202). Enteric contrast material is seen in the small bowel and large bowel to the level of the splenic flexure. No bowel obstruction is noted. Appendix: The appendix has been removed. Intraperitoneal space: No fluid collection. No free air. Retroperitoneal space: No retroperitoneal fluid collection is noted. Vasculature: The abdominal aorta is patent, normal in caliber, and there is no dissection. The iliac arteries, common femoral arteries, renal arteries, celiac artery, superior mesenteric artery, and inferior mesenteric artery are patent. Incidental note is made of small round calcifications in the pelvis, which are compatible with phleboliths. Lymph nodes: There are subcentimeter bilateral inguinal, bilateral pelvic sidewall, mesenteric, and retroperitoneal lymph nodes. No abnormally enlarged lymph nodes measuring greater than 1 cm in short axis are noted. Urinary bladder: The distended urinary bladder is normal in appearance. No stones or masses are seen in the bladder. Reproductive: There has been a hysterectomy. The ovaries are unremarkable. Bones/joints: There is no fracture or dislocation. No suspicious osteolytic or osteoblastic lesion. There are degenerative changes involving the lumbar spine. Soft tissues: Unremarkable. No hernia. No soft tissue fluid collection. IMPRESSION: Evidence for a cecal diverticulitis. However, because of the masslike thickening involving the terminal ileum, cecum, and ascending colon at the level of the ileocecal valve, gastroenterology consultation is recommended for a follow-up colonoscopy to exclude an underlying malignancy. Electronically signed by: Chester Davalos On 06/07/2020 00:25:21 AM
[2020-06-07] MEDS ORDERED: CIPROFLOXACIN 400 MG in IV 1 EA IV ONE (01:15)
[2020-06-07] MEDS ORDERED: metroNIDAZOLE 500 MG in IV 1 EA IV ONE (01:15)
[2020-06-07] MEDS ORDERED: fentaNYL 100 MCG/2 ML INJECTION (J3010) IV ONE (01:30)
[2020-06-07] MEDS ORDERED: LEVO137T2 PO (01:31)
[2020-06-07] MEDS ORDERED: LOSA100T5 PO (01:31)
[2020-06-07] MEDS ORDERED: AMLO1TAB25 PO (01:31)
[2020-06-07] MEDS ORDERED: PREM0.9T PO (01:31)
[2020-06-07] MEDS ORDERED: HYOS0.1214 PO (01:32)
[2020-06-07] MEDS ORDERED: ALIG4CAP PO (01:32)
[2020-06-07] MEDS ORDERED: DIVA500T9 PO (01:33)
[2020-06-07] MEDS ORDERED: SODIUM CHLORIDE 0.9% 1000ML IV STA (02:25)
[2020-06-07] MEDS ORDERED: MAALOX 30 ML SUSP *UDC PO PRN (02:30)
[2020-06-07] MEDS ORDERED: MOM 30ML SUSPENSION UDC PO PRN (02:30)
[2020-06-07 02:52] LABS: RSV AMPLIFICATION NEGATIVE (NEGATIVE)
[2020-06-07] MEDS ORDERED: METAXALONE 800 MG TABLET PO PRN (04:15)
[2020-06-07] MEDS ORDERED: SUMAtriptan SUCCINATE 25 MG TAB PO PRN (04:15)
[2020-06-07] MEDS ORDERED: HYDROMORPHONE HCL 0.5 MG/ 0.5 ML SYRINGE (J1170 PER 1) IV PRN (04:15)
[2020-06-07] MEDS ORDERED: diphenhydrAMINE 25MG CAP PO PRN (04:15)
[2020-06-07] MEDS ORDERED: ALBUTEROL 90 MCG/ACT 8GM HFA INHALER INH PRN (04:15)
[2020-06-07] MEDS ORDERED: GLUCAGON INJ 1MG VIAL SC PRN (04:30)
[2020-06-07] MEDS ORDERED: DEXTROSE 50% 50 ML SYRINGE IV PRN (04:30)
[2020-06-07] MEDS ORDERED: GLUCOSE 4GM CHEW TABLET PO PRN (04:30)
--- NOTE | 2020-06-07 06:41 | HPEPDOC ---
[facility] Medical History & Physical Date of Admission Jun 07, 2020 Date of Service: Jun 07, 2020 Attending Physician: SHOBHA FORD MD History and Physical TIME OF SERVICE: 300 AM CHIEF COMPLAINT: abdominal pain HISTORY OF PRESENT ILLNESS: This 50 yr old F presented with complaints of constant lower abdominal pain along with cramping upper abdominal pain which she describes as 100 out of 10 in severity that is made worse by trying to eat solid foods. She has had this pain for 2 days, has experienced some bloating, and has not been able to eat any food, so she came to the hospital for evaluation. She has had fevers and has lost weight because of her inability to eat, but denies having chills. She has had diarrhea which she attributes to her Linzess which she takes for IBS-C. Her last colonoscopy was done in [place] [address] Reyes the report was unremarkable for hemorrhoids REVIEW OF SYSTEMS: 12 point review of systems negative except as listed in HPI PAST MEDICAL/ SURGICAL HISTORY: IBS -C Prediabetes Chronic HTN Hypothyroidism Asthma GERD Brain aneurysm Diverticulitis Migraines MAUREEN SOCIAL HISTORY: She doesn't smoke She drinks alcohol socially She doesn't use recreational drugs FAMILY HISTORY: Diabetes Thyroid disorders ALLERGIES: Please see below. HOME MEDICATIONS: Please see below. PHYSICAL EXAMINATION: VITAL SIGNS: Please see below. GEN: well-nourished / well developed/ NAD INTEGUMENT: not flushed/ not jaundice HEENT: lips acyanotic /masks covering the lower part of her face including her CVS: RRR/NMRG radial pulses intact LUNGS: able to speak full sentences without stopping to take a breath / no coughing / lungs are clear to auscultation bilaterally on room air ABDOMEN: Contour ( obese) / There is voluntary guarding/soft & not tender with light palpation MSK/EXTREMITIES: NCAT / range of motion intact in all 4 extremities NEURO: CN 2-12 are grossly intact / speech is not dysarthric PSYCH: alert and oriented to person place and time/ able to understand and follow all commands LABORATORY DATA: See below. IMAGING: CT abdomen and pelvis "IMPRESSION: Evidence for a cecal diverticulitis. However, because of the masslike thickening involving the terminal ileum, cecum, and ascending colon at the level of the ileocecal valve, gastroenterology consultation is recommended for a follow-up colonoscopy to exclude an underlying malignancy. " MICROBIOLOGY: Please see below. ASSESSMENT: Ms. Ortiz a 50-year-old with a history of prediabetes, hypothyroidism, IBS-C, asthma, migraines, hypertension and MAUREEN who presented with complaints of abdominal pain that is made worse by eating, along with bloating; she'll be admitted for evaluation of SIRS and possible ileal cecal and ascending colon mass. PLAN: 1. SIRS vs Sepsis SIRS criteria include tachycardia, and leukocytosis. The source is likely intra-abdominal. Plan: Admit to medical floor / telemetry/IV fluids/follow-up blood cultures / empiric metronidazole and cefepime 2. Iileal cecal and ascending colon mass Possibly due to malignancy versus inflammatory bowel disease. Dr. Becerril discussed the case with Dr. Mejia who recommended antibiotics Plan: Nothing by mouth/Follow-up with Dr. Cook for possible colonoscopy / abx 3. IBS -C Plan: hold Linzess 4. Prediabetes Plan f/u accuchecks & A1C / hypoglycemia protocol / sliding scale insulin / hold oral anti-glycemics 5. Hypothyroidism Plan: Levothyroxine 6. Asthma Plan: Albuterol 7. GERD Plan: Omeprazole 8. Chronic Hypertension Plan: Amlodipine, losartan, hydrochlorothiazide 9. Migraines Plan: Sumatriptan 10. MAUREEN Plan: May use, own CPAP 11. Obesity with BMI of 31.2 Complicate's care DVT PROPHYLAXIS: SCDs DISPOSITION: home after more than 2 midnight's stay Vital Signs Vital Signs Date Time Temp Pulse Resp B/P (MAP) Pulse Ox O2 Delivery O2 Flow Rate FiO2 06/07/20 06:18 98.9 86 96 06/07/20 06:15 114/72 (86) 06/07/20 01:27 20 06/07/20 00:03 Room Air Laboratory Data Labs 24H Laboratory Tests 2 06/06/20 21:35: Immature Granulocyte % (Auto) 0.2, Neutrophils (%) (Auto) 61.2, Lymphocytes (%) (Auto) 28.6, Monocytes (%) (Auto) 9.0H, Eosinophils (%) (Auto) 0.7, Basophils (%) (Auto) 0.3, Neutrophils # (Auto) 8.1, Lymphocytes # (Auto) 3.8, Monocytes # (Auto) 1.2H, Eosinophils # (Auto) 0.1, Basophils # (Auto) 0.0, Nucleated Red Blood Cells % (auto) 0.0, Anion Gap 7L, Glomerular Filtration Rate > 60.0, Lactic Acid Level 1.3, Calcium Level 8.9, Total Bilirubin 0.5, Direct Bilirubin 0.1, Aspartate Amino Transf (AST/SGOT) 16, Alanine Aminotransferase (ALT/SGPT) 27, Alkaline Phosphatase 69, Total Creatine Kinase 78, Creatine Kinase MB < 1.0, Creatine Kinase MB Relative Index 1.28, Troponin I < 0.02, Total Protein 7.7, Albumin 3.4, Albumin/Globulin Ratio 0.8L, Lipase 109 06/06/20 23:06: Urine Color YELLOW, Urine Appearance CLEAR, Urine pH 6.0, Urine Specific [place] 1.009, Urine Protein NEGATIVE, Urine Glucose (UA) NEGATIVE, Urine Ketones NEGATIVE, Urine Blood NEGATIVE, Urine Nitrite NEGATIVE, Urine Bilirubin NEGATIVE, Urine Urobilinogen 0.2, Urine Leukocyte Esterase NEGATIVE, Urine WBC (Auto) 1, Urine RBC (Auto) 2, Urine Hyaline Casts (Auto) 0, Urine Bacteria (Auto) NEGATIVE, Urine Squamous Epithelial Cells 4, Urine Sperm (Auto) 06/07/20 01:48: Coronavirus (COVID-19)(PCR) POSITIVEA, Influenza Type A (RT-PCR) NEGATIVE, Influenza Type B (RT-PCR) NEGATIVE, Respiratory Syncytial Virus (PCR) NEGATIVE CBC/BMP Laboratory Tests 06/06/20 21:35 Microbiology Microbiology 06/07/20 Blood Culture, Received Pending 06/07/20 Blood Culture, Received Pending Home Medications Scheduled Amlodipine Besylate (Amlodipine Besylate) 10 Mg Tablet, 10 MG PO QHS Amoxicillin/Potassium Clav (Augmentin 875-125 Tablet) 1 Each Tablet, 1 TAB PO TID Aspirin (Ecotrin) 81 Mg Tablet.dr, 81 MG PO DAILY Bifidobacterium Infantis (Align) 4 Mg Capsule, 4 MG PO DAILY Divalproex Sodium (Divalproex Sodium ER) 500 Mg Tab.er.24h, 500 MG PO DAILY Estrogens, Conjugated (Premarin) 0.9 Mg Tablet, 0.9 MG PO DAILY Fluticasone Propion/Salmeterol (Advair Hfa 230-21 Mcg Inhaler) 12 Gm Hfa.aer.ad, 2 PUFF INH BID Gabapentin (Gabapentin) 400 Mg Cap, 400 MG PO BID Hydroxyzine HCl (Hydroxyzine HCl) 25 Mg Tab, 25 MG PO TID Hyoscyamine Sulfate (Hyoscyamine Sulfate) 0.125 Mg Tab.rapdis, 0.125 MG PO QID Ipratropium [place] (Ipratropium [place]) 165 [place]/15 Ml Naspr, 2 SPRAYS NA BID Levothyroxine Sodium (Levothyroxine Sodium) 137 Mcg Tablet, 137 MCG PO QAM Linaclotide (Linzess) 72 Mcg Cap, 72 MG PO DAILY Losartan/Hydrochlorothiazide (Losartan-Hctz 100-25 mg Tab) 1 Each Tablet, 1 TAB PO DAILY Metformin HCl (Metformin HCl) 500 Mg Tablet, 500 MG PO QHS Montelukast Sodium (Montelukast Sodium) 10 Mg Tablet, 10 MG PO QHS Olopatadine HCl (Pazeo) 0.7 % Charles, 1 DROP OU DAILY Omeprazole (Omeprazole) 20 Mg Cap, 20 MG PO BID Scheduled PRN Acetaminophen (Acetaminophen) 325 Mg Tablet, 650 MG PO Q4H PRN for FEVER Albuterol Sulfate (Proair Hfa) 108 Mcg/Act Aer, 2 PUFFS INH PRN PRN for SOB/WHEEZING Diphenhydramine HCl (Benadryl) 25 Mg Cap, 25 MG PO BIDP PRN for ALLERGIES Emollient Base (Vanicream) 453 Gm Cream..g., 1 APPLIC EX DAILY PRN for ITCHING LEGS AND HANDS Epinephrine (Epipen 2-Grady) 0.3 Mg/0.3 Ml Inj, 0.3 MG IJ for ANAPHALAXIS Fluocinonide/Emollient Base (Fluocinonide-E 0.05% Cream) 15 Gm Cream..g., 1 APLCT EX DAILY PRN for DRY SKIN LEGS AND HANDS Metaxalone (Skelaxin) 800 Mg Tab, 400 MG PO DAILY PRN for PAIN MAY TAKE WHOLE TABLET Sumatriptan Succinate (Sumatriptan Succinate) 100 Mg Tab, 100 MG PO PRN PRN for MIGRAINE Allergies Coded Allergies: NUTS (Verified Allergy, Severe, RASH AND ITCHY THROAT, 11/04/19) POLLEN (Verified Allergy, Severe, RASH AND THROAT CLOSES, 11/04/19) SEAFOOD (Verified Allergy, Severe, RASH AND THROAT CLOSES, 11/04/19) Wheat (Verified Allergy, Severe, ITCHY THROAT, THROAT CLOSES, 11/04/19) chlorthalidone (Verified Allergy, Mild, RASH, 11/04/19) morphine (Verified Adverse Reaction, Mild, STOMACH PAINS, 11/04/19) A-FIB/CHADSVASC A-FIB History Current/History of A-Fib/PAF?: No Current PO Anticoag Therapy: No SHOBHA FORD MD Jun 07, 2020 06:41
[2020-06-07] MEDS: CEFEPIME HCL 2 GM in D5W MINI-BAG PLUS 50 ML IV SCH (06:49)
[2020-06-07] MEDS: HYDROMORPHONE HCL 0.5 MG/ 0.5 ML SYRINGE (J1170 PER 1) IV PRN ×2 (06:50→17:24)
[2020-06-07] MEDS: amLODIPine 10 MG TAB PO SCH ×2 (06:53→20:49)
[2020-06-07] MEDS: hydrOXYzine 25 MG TAB PO SCH ×3 (06:53→20:50)
[2020-06-07] MEDS: HEPARIN SOD (PORCINE) 5000UNITS/ML 1ML VIAL/SYRINGE SC SCH ×3 (06:53→21:00)
[2020-06-07] MEDS: MONTELUKAST 10 MG TAB PO SCH ×2 (06:54→20:45)
[2020-06-07] MEDS: GABAPENTIN 400 MG CAP PO SCH ×2 (06:54→20:44)
[2020-06-07] MEDS: OMEPRAZOLE 20 MG CAP PO SCH ×2 (06:55→20:45)
[2020-06-07 07:01] LABS: BASO % 0.2 % (0.0-1.0); EOS # 0.1 10^3/uL (0.0-0.5); EOS % 0.7 % (0.0-3.0); HEMATOCRIT 34.9 % (36.0-47.0); HEMOGLOBIN 10.7 g/dl (12.0-15.5); LYMPH # 3.7 10^3/uL (1.5-5.0); LYMPH % 31.9 % (24.0-44.0); MEAN CORPUSCULAR HEMOGLOBIN 25.7 pg (27.0-33.0); MEAN CORPUSCULAR HGB CONC 30.7 g/dl (32.0-36.5); MEAN CORPUSCULAR VOLUME 83.7 fl (80.0-96.0); MONO % 8.7 % (0.0-5.0); NEUTROPHILS # 6.7 10^3/uL (1.5-8.5); NEUTROPHILS % 58.2 % (36.0-66.0); PLATELET COUNT, AUTOMATED 223 10^3/uL (150-450); RED BLOOD COUNT 4.17 10^6/uL (4.00-5.40); WHITE BLOOD COUNT 11.6 10^3/uL (4.0-10.0)
[2020-06-07 07:02] VITALS: BP 119/63
[2020-06-07 07:30] LABS: BLOOD UREA NITROGEN 6 MG/DL (7-18); CARBON DIOXIDE LEVEL 26 MEQ/L (21-32); CHLORIDE LEVEL 107 MEQ/L (98-107); CREATININE FOR GFR 0.56 MG/DL (0.55-1.30); GLOMERULAR FILTRATION RATE > 60.0 (>58); GLUCOSE, FASTING 95 MG/DL (70-100); POTASSIUM SERUM 3.7 MEQ/L (3.5-5.1); SODIUM LEVEL 141 MEQ/L (136-145)
[2020-06-07] MEDS: HumaLOG INSULIN (NovoLOG) PER UNIT SC SCH ×4 (07:30→20:55)
[2020-06-07 07:31] LABS: ALBUMIN 2.9 GM/DL (3.2-5.2); ALT/SGPT 22 U/L (12-78); BILIRUBIN,TOTAL 0.5 MG/DL (0.2-1.0); CALCIUM LEVEL 7.8 MG/DL (8.5-10.1); TOTAL PROTEIN 6.4 GM/DL (6.4-8.2)
[2020-06-07 08:00] VITALS: BP 110/66
[2020-06-07] MEDS: OLOPATADINE 0.1% OPHTH SOL 5ML(PATANOL) OU SCH (08:36)
[2020-06-07] MEDS: IPRATROPIUM 0.06% NASAL SPRAY 15 ML (ATROVENT) SCH ×2 (08:37→20:56)
[2020-06-07] MEDS: ASPIRIN 81 MG ENTERIC TAB PO SCH (08:38)
[2020-06-07] MEDS: hydroCHLOROthiazide 25 MG TAB PO SCH (08:38)
[2020-06-07] MEDS: LOSARTAN 50MG TABLET PO SCH (08:38)
[2020-06-07] MEDS: HYOSCYAMINE SULFATE 0.125 MG SUBL TABLET PO SCH ×4 (08:38→20:50)
[2020-06-07] MEDS: DIVALPROEX 500MG *ER* TAB PO SCH (08:39)
[2020-06-07] MEDS: LEVOTHYROXINE 137MCG TABLET (0.137MG) PO SCH (08:39)
[2020-06-07] MEDS: ADVAIR HFA 230/21MCG INHALER INH SCH ×2 (09:44→21:17)
[2020-06-07] MEDS: NS 1,000 ML IV SCH ×3 (10:11→22:23)
[2020-06-07 10:40] LABS: HEMOGLOBIN A1c 5.9 %
--- NOTE | 2020-06-07 11:59 | IPNPDOC ---
Text Note Date of Service The patient was seen on 06/07/20. NOTE Subjective: Patient is a 50-year-old female who presented to the emergency room with lower abdominal pain associated cramping diffusely. Patient was found to have inflammation around her cecum (infectious versus inflammatory versus neoplasm). Patient was made to the hospital service for further evaluation and treatment. General surgery was called on consultation for further evaluation Of note, patient has reported that she was COVID19 positive on 05/19 after expressing 4 days if symptoms are getting tested. Patient reports that her symptoms lasted until 05/25 and she has been asymptomatic since. Patient was seen and examined at the bedside. Currently patient reports that her abdominal pain is doing better. She denies any nausea, vomiting, chest pain, shortness breath, palpitations. Patient reports some diarrhea last bowel movement was yesterday afternoon. Patient denies any urinary discomfort. Objective: Vitals (See below) General: Lying in bed, appears comfortable, AAOx3 HEENT: NC, AT CVS: +S1S2 Lungs: Fair air entry b/l, -w/r/r Abdomen: Soft, ND, tenderness appreciated. Right lower quadrant Extremities: - Edema, - Calf tenderness Imaging: CT abdomen / pelvis 06/07: Evidence for a cecal diverticulitis. However, because of the masslike thickening involving the terminal ileum, cecum, and ascending colon at the level of the ileocecal valve, gastroenterology consultation is recommended for a follow-up colonoscopy to exclude an underlying malignancy. Assessment and plan: Abdominal pain - likely 2/2 cecal inflammation - possibly 2/2 diverticulitis (bacterial), possibly 2/2 autoimmune, possibly 2/2 malignancy - Clinically patient reports that her abdominal pain is doing better - Patient is hemodynamically stable and afebrile - Leukocytosis is improving - Imaging noted above - Discussed with general surgery, on consultation; will continue with NPO except sips and chips - c/w Cefepime and Flagyl (Day #2) COVID19 infection - Patient reports that she was tested positive for COVID19 on 05/19 - Patient reports that she has been asymptomatic since 05/25 - Will discuss with infection control and provide appropriate level of precautions - Currently on droplet and contact precautions IBS -C - Will resume on discharge Prediabetes - c/w ISS Hypothyroidism - c/w Levothyroxine Chronic asthma - No evidence of exacerbation - c/w inhaled therapy as ordered HTN - BP well controlled - c/w Amlodipine, losartan, HCTZ Migraines - c/w Sumatriptan MAUREEN - Allow home CPAP use while inpatient Obesity - BMI of 31.2 - Complicating medical GERD - c/w Omeprazole DVT prophylaxis - c/w Heparin Disposition: - Awaiting clinical improvement VS,Fishbone, I+O VS, Fishbone, I+O Laboratory Tests 06/06/20 21:35 06/07/20 06:49 Vital Signs Date Time Temp Pulse Resp B/P (MAP) Pulse Ox O2 Delivery O2 Flow Rate FiO2 06/07/20 08:38 110/66 06/07/20 08:00 98.7 81 18 96 Nasal Cannula 2.0 I&O- Last 24 Hours up to 6 AM 06/07/20 06:00 Intake Total 1000 ml Balance 1000 ml RAFAEL LOWE MD Jun 07, 2020 11:59
[2020-06-07 12:03] VITALS: BP 126/72
[2020-06-07] MEDS: metroNIDAZOLE 500 MG in IV 1 EA IV SCH ×2 (13:06→19:44)
[2020-06-07 14:00] VITALS: BP 120/72
[2020-06-07 18:00] VITALS: BP 119/71
[2020-06-07 22:00] VITALS: BP 117/71
[2020-06-08 02:00] VITALS: BP 125/74
[2020-06-08] MEDS: metroNIDAZOLE 500 MG in IV 1 EA IV SCH ×3 (03:20→20:36)
[2020-06-08] MEDS: CEFEPIME HCL 2 GM in D5W MINI-BAG PLUS 50 ML IV SCH (05:52)
[2020-06-08] MEDS: HEPARIN SOD (PORCINE) 5000UNITS/ML 1ML VIAL/SYRINGE SC SCH ×3 (05:53→20:39)
[2020-06-08] MEDS: LEVOTHYROXINE 137MCG TABLET (0.137MG) PO SCH (05:53)
[2020-06-08 06:00] VITALS: BP 134/77
[2020-06-08] MEDS: ACETAMINOPHEN TAB 650MG DOSE (2X325MG) PO PRN ×2 (06:21→18:52)
[2020-06-08 06:37] LABS: HEMATOCRIT 35.6 % (36.0-47.0); MEAN CORPUSCULAR HEMOGLOBIN 25.7 pg (27.0-33.0); MEAN CORPUSCULAR HGB CONC 30.9 g/dl (32.0-36.5); MEAN CORPUSCULAR VOLUME 83.2 fl (80.0-96.0); PLATELET COUNT, AUTOMATED 230 10^3/uL (150-450); RED BLOOD COUNT 4.28 10^6/uL (4.00-5.40); WHITE BLOOD COUNT 10.1 10^3/uL (4.0-10.0)
[2020-06-08 07:01] LABS: BLOOD UREA NITROGEN 4 MG/DL (7-18); CALCIUM LEVEL 8.1 MG/DL (8.5-10.1); CARBON DIOXIDE LEVEL 27 MEQ/L (21-32); CHLORIDE LEVEL 104 MEQ/L (98-107); CREATININE FOR GFR 0.62 MG/DL (0.55-1.30); GLOMERULAR FILTRATION RATE > 60.0 (>58); GLUCOSE, FASTING 112 MG/DL (70-100); POTASSIUM SERUM 3.3 MEQ/L (3.5-5.1); SODIUM LEVEL 140 MEQ/L (136-145)
[2020-06-08] MEDS: HumaLOG INSULIN (NovoLOG) PER UNIT SC SCH ×4 (07:30→21:00)
[2020-06-08] MEDS: ADVAIR HFA 230/21MCG INHALER INH SCH ×2 (07:44→18:12)
[2020-06-08] MEDS: ASPIRIN 81 MG ENTERIC TAB PO SCH (08:17)
[2020-06-08] MEDS: hydroCHLOROthiazide 25 MG TAB PO SCH (08:17)
[2020-06-08] MEDS: hydrOXYzine 25 MG TAB PO SCH ×3 (08:17→20:37)
[2020-06-08] MEDS: HYOSCYAMINE SULFATE 0.125 MG SUBL TABLET PO SCH ×4 (08:17→20:37)
[2020-06-08] MEDS: KCL 10MEQ/100ML SWI (KRUN) 10 MEQ in IV 1 EA IV SCH ×3 (08:17→12:13)
[2020-06-08] MEDS: GABAPENTIN 400 MG CAP PO SCH ×2 (08:17→20:37)
[2020-06-08] MEDS: DIVALPROEX 500MG *ER* TAB PO SCH (08:18)
[2020-06-08] MEDS: LOSARTAN 50MG TABLET PO SCH (08:18)
[2020-06-08] MEDS: OMEPRAZOLE 20 MG CAP PO SCH ×2 (08:18→20:37)
[2020-06-08] MEDS: OLOPATADINE 0.1% OPHTH SOL 5ML(PATANOL) OU SCH (08:19)
[2020-06-08] MEDS: IPRATROPIUM 0.06% NASAL SPRAY 15 ML (ATROVENT) SCH ×2 (08:19→21:00)
[2020-06-08] MEDS: NS 1,000 ML IV SCH ×2 (08:24→17:07)
--- NOTE | 2020-06-08 10:26 | IPNPDOC ---
Date Seen The patient was seen on 06/08/20. Progress Note SUBJECTIVE: Patient was seen and examined at bedside this morning. She appeared to be comfortable walking around, going to the restroom by herself. She states her abdominal pain has improved. It is localized mainly to the right lower quadrant. She denies any subjective fevers or chills, nausea, vomiting, diarrhea. However, she was febrile overnight, MAXIMUM TEMPERATURE of 101.4. She states that she is hungry and would like to eat; as well as she is interested in going home today. I discussed with her that we want to see her tolerate a clear liquid diet for the first [address] Cook concurs recommended for her to start a clear liquid diet today and to see if she tolerates a regular diet tomorrow morning. If is able to do that she may be discharged with close GI follow-up. OBJECTIVE PHYSICAL EXAMINATION: VITAL SIGNS: please see below General: NAD, comfortable HEENT: PERRLA, EOMI, sclerae clear Neck: supple, normal ROM, no JVD Respiratory: lungs CTAB, no wheeze, no rales, no crackles CVS: RRR, normal S1, S2, no murmurs Abdo: 5 out of 10 pain to palpation right lower quadrant. Soft, no masses, no hepatosplenomegaly, BS+, no rebound tenderness Extremities: no edema, pulses 2+ MSK: no joint deformities, normal ROM Neuro: no focal neuro deficits, moving all 4 extremities, CN2-12 intact. Strength 5/5 in all 4 extremities. No nystagmus. Psych: calm, cooperative, AAO x 3 LABORATORY DATA, IMAGING STUDIES, MICROBIOLOGY: Please see below. Imaging: CT abdomen / pelvis 06/07: Evidence for a cecal diverticulitis. However, because of the masslike thickening involving the terminal ileum, cecum, and ascending colon at the level of the ileocecal valve, gastroenterology consultation is recommended for a follow-up colonoscopy to exclude an underlying malignancy. DVT prophylaxis ordered?: Heparin ASSESSMENT AND PLAN: 50-year-old female who presented to the emergency room with lower abdominal pain associated cramping diffusely. Patient was found to have inflammation around her cecum (infectious versus inflammatory versus neoplasm). Admitted for further workup. General surgery was called on consultation for further evaluation. PROBLEMS: #RLQ abdominal pain: cecal inflammation vs diverticulitis, possible etiology autoimmune, possible malignancy. Last colonoscopy 09/[address] Reyes. WBC improving. Clinically abdominal pain improving. Continues to have fevers. D/w Dr. Cook, advance diet to [facility]D for 24 hours. Low residue diet on 06/09, if tolerates breakfast, possible DC. C/w flagyl, cefepime (Day #3). Will need to follow up with Dr. Reyes 2-3 weeks after discharge. #Covid-19 infection: positive on 05/19. Asymptomatic since 05/25. Precautions per infection control. #IBS-C: resume meds on DC. F/u with Dr. Reyes (GI). #Pre-DM: ISS #Hypothyroid: c/w levothyroxine #Chronic asthma: not in acute exacerbation. C/w inhaled therapy. #HTN: BP controlled. Amlodipine. Losartan. HCTZ. #Hx of migraines: c/w sumatriptan. #MAUREEN: home CPAP machine #GERD: c/w PPI #Obesity: BMI 31.2. Complicating care. DVT ppx: heparin, SCDs, TEDs, ambulation. DISPOSITION: admission to [facility] > 2 midnights. Possible DC on 06/09/20 if able to tolerate regular for breakfast on 06/09. VS, I&O, 24H, Fishbone Vital Signs/I&O Vital Signs Date Time Temp Pulse Resp B/P (MAP) Pulse Ox O2 Delivery O2 Flow Rate FiO2 06/08/20 08:18 120/64 06/08/20 07:44 83 06/08/20 06:57 99.8 06/08/20 06:00 18 96 Room Air 06/07/20 08:00 2.0 I&O- Last 24 Hours up to 6 AM 06/08/20 06:00 Intake Total 5000 ml Output Total 2700 ml Balance 2300 ml Laboratory Data 24H LABS Laboratory Tests 2 06/07/20 12:56: Bedside Glucose (Misc Panel) 82 06/07/20 16:39: Bedside Glucose (Misc Panel) 83 06/07/20 20:23: Bedside Glucose (Misc Panel) 88 06/08/20 06:14: Nucleated Red Blood Cells % (auto) 0.0, Anion Gap 9, Glomerular Filtration Rate > 60.0, Calcium Level 8.1L CBC/BMP Laboratory Tests 06/08/20 06:14 Microbiology Microbiology 06/07/20 Blood Culture - Preliminary, Resulted No growth after 24 hours . All specim... 06/07/20 Blood Culture - Preliminary, Resulted No growth after 24 hours . All specim... STACEY CRUMP MD Jun 08, 2020 10:26
[2020-06-08 14:00] VITALS: BP 128/81
[2020-06-08] MEDS: MONTELUKAST 10 MG TAB PO SCH (20:36)
[2020-06-08] MEDS: amLODIPine 10 MG TAB PO SCH (20:37)
[2020-06-08 22:00] VITALS: BP 131/81
[2020-06-09 02:00] VITALS: BP 135/76
[2020-06-09] MEDS: metroNIDAZOLE 500 MG in IV 1 EA IV SCH ×2 (03:14→12:43)
[2020-06-09] MEDS: NS 1,000 ML IV SCH (03:14)
[2020-06-09 06:00] VITALS: BP 129/74
[2020-06-09 06:20] LABS: BASO % 0.1 % (0.0-1.0); EOS # 0.1 10^3/uL (0.0-0.5); EOS % 1.3 % (0.0-3.0); HEMATOCRIT 32.9 % (36.0-47.0); HEMOGLOBIN 10.2 g/dl (12.0-15.5); LYMPH # 3.4 10^3/uL (1.5-5.0); LYMPH % 40.3 % (24.0-44.0); MEAN CORPUSCULAR VOLUME 83.9 fl (80.0-96.0); MONO # 0.6 10^3/uL (0.0-0.8); MONO % 7.6 % (0.0-5.0); NEUTROPHILS # 4.3 10^3/uL (1.5-8.5); NEUTROPHILS % 50.5 % (36.0-66.0); PLATELET COUNT, AUTOMATED 215 10^3/uL (150-450); RED BLOOD COUNT 3.92 10^6/uL (4.00-5.40); WHITE BLOOD COUNT 8.5 10^3/uL (4.0-10.0)
[2020-06-09] MEDS: CEFEPIME HCL 2 GM in D5W MINI-BAG PLUS 50 ML IV SCH (06:31)
[2020-06-09] MEDS: LEVOTHYROXINE 137MCG TABLET (0.137MG) PO SCH (06:31)
[2020-06-09] MEDS: HEPARIN SOD (PORCINE) 5000UNITS/ML 1ML VIAL/SYRINGE SC SCH ×2 (06:32→13:18)
[2020-06-09 06:53] LABS: ALT/SGPT 19 U/L (12-78); BILIRUBIN,TOTAL 0.4 MG/DL (0.2-1.0); BLOOD UREA NITROGEN 3 MG/DL (7-18); CALCIUM LEVEL 8.4 MG/DL (8.5-10.1); CARBON DIOXIDE LEVEL 31 MEQ/L (21-32); CHLORIDE LEVEL 106 MEQ/L (98-107); CREATININE FOR GFR 0.54 MG/DL (0.55-1.30); GLOMERULAR FILTRATION RATE > 60.0 (>58); GLUCOSE, FASTING 94 MG/DL (70-100); MAGNESIUM LEVEL 2.4 MG/DL (1.8-2.4); POTASSIUM SERUM 3.4 MEQ/L (3.5-5.1); SODIUM LEVEL 140 MEQ/L (136-145); TOTAL PROTEIN 6.6 GM/DL (6.4-8.2)
[2020-06-09] MEDS: HumaLOG INSULIN (NovoLOG) PER UNIT SC SCH ×2 (07:30→12:00)
[2020-06-09] MEDS: ADVAIR HFA 230/21MCG INHALER INH SCH (08:00)
[2020-06-09] MEDS ORDERED: POTASSIUM CHLORIDE 10 MEQ SR TABLET PO ONE (08:00)
[2020-06-09] MEDS: OLOPATADINE 0.1% OPHTH SOL 5ML(PATANOL) OU SCH (08:23)
[2020-06-09] MEDS: ASPIRIN 81 MG ENTERIC TAB PO SCH (08:23)
[2020-06-09] MEDS: HYOSCYAMINE SULFATE 0.125 MG SUBL TABLET PO SCH ×2 (08:23→12:43)
[2020-06-09] MEDS: IPRATROPIUM 0.06% NASAL SPRAY 15 ML (ATROVENT) SCH (08:23)
[2020-06-09] MEDS: OMEPRAZOLE 20 MG CAP PO SCH (08:23)
[2020-06-09] MEDS: hydrOXYzine 25 MG TAB PO SCH (08:23)
[2020-06-09] MEDS: GABAPENTIN 400 MG CAP PO SCH (08:23)
[2020-06-09] MEDS: DIVALPROEX 500MG *ER* TAB PO SCH (08:24)
[2020-06-09 08:25] VITALS: BP 135/85
[2020-06-09] MEDS: LOSARTAN 50MG TABLET PO SCH (08:25)
[2020-06-09] MEDS: hydroCHLOROthiazide 25 MG TAB PO SCH (08:26)
[2020-06-09 10:00] VITALS: BP 164/93
[2020-06-09] MEDS ORDERED: AUGM875T28 PO (11:08)
[2020-06-09] MEDS ORDERED: ACET1TAB55 PO (11:08)
--- NOTE | 2020-06-09 18:07 | DS.PDOC ---
Discharge Summary General Date of Admission Jun 07, 2020 at 02:25 Date of Discharge 06/09/20 Discharge Summary PROCEDURES PERFORMED DURING STAY: [None]. ADMITTING DIAGNOSES: RLQ abdominal pain COVID-19 infection (hx) IBS-C Pre-DM Hypothyroidism HTN Migrains MAUREEN GERD Obesity BMI 31.2 DISCHARGE DIAGNOSES: Diverticulitis COVID-19 infection (hx) IBS-C Pre-DM Hypothyroidism HTN Migrains MAUREEN GERD Obesity BMI 31.2 COMPLICATIONS/CHIEF COMPLAINT: Sarah Hypertension, Sirs. HISTORY OF PRESENT ILLNESS: This 50 yr old F presented with complaints of constant lower abdominal pain along with cramping upper abdominal pain which she describes as 100 out of 10 in severity that is made worse by trying to eat ammy d foods. She has had this pain for 2 days, has experienced some bloating, and has not been able to eat any food, so she came to the hospital for evaluation. She has had fevers and has lost weight because of her inability to eat, but denies having chills. She has had diarrhea which she attributes to her Linzess which she takes for IBS-C. Her last colonoscopy was done in [place] [address] Reyes the report was unremarkable for hemorrhoids HOSPITAL COURSE: #RLQ abdominal pain: cecal inflammation vs diverticulitis, possible etiology autoimmune, possible malignancy. Last colonoscopy 09/[address] Reyes. WBC resolved. Clinically abdominal pain improving. Afebrile overnight. Completed 3 days of cefepime and flagyl. DC with 6 additional days of augmentin 875 mg BID. Will need to follow up with Dr. Reyes 2-3 weeks after discharge. #Covid-19 infection: positive on 05/19. Asymptomatic since 05/25. #IBS-C: resume meds on DC. F/u with Dr. Reyes (GI). #Pre-DM: ISS #Hypothyroid: c/w levothyroxine #Chronic asthma: not in acute exacerbation. C/w inhaled therapy. #HTN: BP controlled. Amlodipine. Losartan. HCTZ. #Hx of migraines: c/w sumatriptan. #MAUREEN: home CPAP machine #GERD: c/w PPI #Obesity: BMI 31.2. Complicating care. DISCHARGE MEDICATIONS: Please see below. ALLERGIES: Please see below. PHYSICAL EXAMINATION ON DISCHARGE: VITAL SIGNS: Please see below. General: NAD, comfortable HEENT: PERRLA, EOMI, sclerae clear Neck: supple, normal ROM, no JVD Respiratory: lungs CTAB, no wheeze, no rales, no crackles CVS: RRR, normal S1, S2, no murmurs Abdo: 3 out of 10 pain to palpation right lower quadrant. Soft, no masses, no hepatosplenomegaly, BS+, no rebound tenderness Extremities: no edema, pulses 2+ MSK: no joint deformities, normal ROM Neuro: no focal neuro deficits, moving all 4 extremities, CN2-12 intact. Strength 5/5 in all 4 extremities. No nystagmus. Psych: calm, cooperative, AAO x 3 LABORATORY DATA: Please see below. IMAGING: CT abdo pelvis with IV and Oral Contrast (06/06/20): Lungs: The imaged portions of the lung bases are clear. The lungs were not fully imaged. Heart: No cardiomegaly or pericardial effusion. Liver: There is a 12 mm homogeneously enhancing lesion in the posterosuperior segment 7 of the right hepatic lobe (image 30 of the axial series 201), which is stable compared to the prior CT abdomen and pelvis on 03/14/2019 and may represent a flash filling hemangioma or transient hepatic attenuation difference, for which further follow-up is not necessary. There is a 2 mm calcified granuloma in the posterosuperior segment 7 of the right hepatic lobe, which is unchanged compared to the prior CT abdomen and pelvis on 05/10/2020. The attenuation of the liver is lower compared to the spleen, which can be seen with fatty liver infiltration. The contour of the liver is smooth. No hepatomegaly is noted. Gallbladder and bile ducts: There has been a cholecystectomy. There is no fluid collection in the gallbladder fossa. No dilation of the bile ducts is noted. No calcified stones are seen in the common bile duct. Pancreas: Normal. No dilation of the main pancreatic duct is noted. There is no inflammatory fat stranding around the pancreas to suggest acute pancreatitis. Spleen: Normal. No splenomegaly is noted. Adrenal glands: Normal. No adrenal mass is noted. Kidneys and ureters: The kidneys are normal in appearance. No renal lesion is noted. No stones are noted in the kidneys or ureters. There is no hydronephrosis or hydroureter. There are no wedge-shaped areas of low attenuation in the kidneys to suggest pyelonephritis. There is no renal abscess or perinephric fluid collection. Stomach and bowel: The stomach is decompressed, limiting its optimal evaluation. There is masslike thickening involving the wall of the terminal ileum, cecum, and ascending colon at the ileocecal valve and inflammatory fat stranding around a cecal diverticulum (image 97 of the axial series 201 and images 44-54 of the coronal series 202). Enteric contrast material is seen in the small bowel and large bowel to the level of the splenic flexure. No bowel obstruction is noted. Appendix: The appendix has been removed. Intraperitoneal space: No fluid collection. No free air. Retroperitoneal space: No retroperitoneal fluid collection is noted. Vasculature: The abdominal aorta is patent, normal in caliber, and there is no dissection. The iliac arteries, common femoral arteries, renal arteries, celiac artery, superior mesenteric artery, and inferior mesenteric artery are patent. Incidental note is made of small round calcifications in the pelvis, which are compatible with phleboliths. Lymph nodes: There are subcentimeter bilateral inguinal, bilateral pelvic sidewall, mesenteric, and retroperitoneal lymph nodes. No abnormally enlarged lymph nodes measuring greater than 1 cm in short axis are noted. Urinary bladder: The distended urinary bladder is normal in appearance. No stones or masses are seen in the bladder. Reproductive: There has been a hysterectomy. The ovaries are unremarkable. Bones/joints: There is no fracture or dislocation. No suspicious osteolytic or osteoblastic lesion. There are degenerative changes involving the lumbar spine. Soft tissues: Unremarkable. No hernia. No soft tissue fluid collection. IMPRESSION: Evidence for a cecal diverticulitis. However, because of the masslike thickening involving the terminal ileum, cecum, and ascending colon at the level of the ileocecal valve, gastroenterology consultation is recommended for a follow-up colonoscopy to exclude an underlying malignancy. PROGNOSIS: Good ACTIVITY: As tolerated DIET: low residue DISCHARGE PLAN: DC home. PCP and GI follow up for possible repeat colonoscopy. DISPOSITION: Home, Self-Care. DISCHARGE INSTRUCTIONS: . Please follow-up with your primary care doctor within 3-5 days . Please follow-up with GI Dr. Reyes within 1-2 weeks . Please taking medications as prescribed. . If you develop bleeding, chest pain, shortness of breath, seizures, nausea, fevers, or otherwise worsening of your symptoms, please call 911 or return to the nearest emergency room ITEMS TO FOLLOWUP ON ON OUTPATIENT: GI follow up. DISCHARGE CONDITION: Stable TIME SPENT ON DISCHARGE: Greater than minutes. Vital Signs/I&Os Vital Signs Date Time Temp Pulse Resp B/P (MAP) Pulse Ox O2 Delivery O2 Flow Rate FiO2 06/09/20 10:00 98.3 100 17 164/93 (116) 96 Room Air 06/07/20 08:00 2.0 I&O- Last 24 Hours up to 6 AM 06/09/20 06:00 Intake Total 1900 ml Output Total 1500 ml Balance 400 ml Laboratory Data Labs 24H Laboratory Tests 2 06/08/20 20:01: Bedside Glucose (Misc Panel) 116H 06/09/20 05:35: Immature Granulocyte % (Auto) 0.2, Neutrophils (%) (Auto) 50.5, Lymphocytes (%) (Auto) 40.3, Monocytes (%) (Auto) 7.6H, Eosinophils (%) (Auto) 1.3, Basophils (%) (Auto) 0.1, Neutrophils # (Auto) 4.3, Lymphocytes # (Auto) 3.4, Monocytes # (Auto) 0.6, Eosinophils # (Auto) 0.1, Basophils # (Auto) 0.0, Nucleated Red Blood Cells % (auto) 0.0 06/09/20 05:36: Anion Gap 3L, Glomerular Filtration Rate > 60.0, Calcium Level 8.4L, Magnesium Level 2.4, Total Bilirubin 0.4, Aspartate Amino Transf (AST/SGOT) 7, Alanine Aminotransferase (ALT/SGPT) 19, Alkaline Phosphatase 64, Total Protein 6.6, Albumin 3.0L, Albumin/Globulin Ratio 0.8L 06/09/20 11:50: Bedside Glucose (Misc Panel) 106H CBC/BMP Laboratory Tests 06/09/20 05:35 06/09/20 05:36 FSBS Laboratory Tests Test 06/08/20 20:01 06/09/20 11:50 Range/Units Bedside Glucose (Misc Panel) 116 106 70-105 MG/DL Microbiology Microbiology 06/07/20 Blood Culture - Preliminary, Resulted No Growth after 48 hours. All Specime... 06/07/20 Blood Culture - Preliminary, Resulted No Growth after 48 hours. All Specime... Discharge Medications Scheduled Amlodipine Besylate (Amlodipine Besylate) 10 Mg Tablet, 10 MG PO QHS, (Reported) Amoxicillin/Potassium Clav (Augmentin 875-125 Tablet) 1 Each Tablet, 1 TAB PO TID Aspirin (Ecotrin) 81 Mg Tablet.dr, 81 MG PO DAILY, (Reported) Bifidobacterium Infantis (Align) 4 Mg Capsule, 4 MG PO DAILY, (Reported) Divalproex Sodium (Divalproex Sodium ER) 500 Mg Tab.er.24h, 500 MG PO DAILY, (Reported) Estrogens, Conjugated (Premarin) 0.9 Mg Tablet, 0.9 MG PO DAILY, (Reported) Fluticasone Propion/Salmeterol (Advair Hfa 230-21 Mcg Inhaler) 12 Gm Hfa.aer.ad, 2 PUFF INH BID, (Reported) Gabapentin (Gabapentin) 400 Mg Cap, 400 MG PO BID, (Reported) Hydroxyzine HCl (Hydroxyzine HCl) 25 Mg Tab, 25 MG PO TID, (Reported) Hyoscyamine Sulfate (Hyoscyamine Sulfate) 0.125 Mg Tab.rapdis, 0.125 MG PO QID, (Reported) Ipratropium [place] (Ipratropium [place]) 165 [place]/15 Ml Naspr, 2 SPRAYS NA BID, (Reported) Levothyroxine Sodium (Levothyroxine Sodium) 137 Mcg Tablet, 137 MCG PO QAM, (Reported) Linaclotide (Linzess) 72 Mcg Cap, 72 MG PO DAILY, (Reported) Losartan/Hydrochlorothiazide (Losartan-Hctz 100-25 mg Tab) 1 Each Tablet, 1 TAB PO DAILY, (Reported) Metformin HCl (Metformin HCl) 500 Mg Tablet, 500 MG PO QHS, (Reported) Montelukast Sodium (Montelukast Sodium) 10 Mg Tablet, 10 MG PO QHS, (Reported) Olopatadine HCl (P[place]o) 0.7 % [place], 1 DROP OU DAILY, (Reported) Omeprazole (Omeprazole) 20 Mg Cap, 20 MG PO BID, (Reported) Scheduled PRN Acetaminophen (Acetaminophen) 325 Mg Tablet, 650 MG PO Q4H PRN for FEVER Albuterol Sulfate (Proair Hfa) 108 Mcg/Act Aer, 2 PUFFS INH PRN PRN for SOB/WHEEZING, (Reported) Diphenhydramine HCl (Benadryl) 25 Mg Cap, 25 MG PO BIDP PRN for ALLERGIES, (Reported) Emollient Base (Vanicream) 453 Gm Cream..g., 1 APPLIC EX DAILY PRN for ITCHING, (Reported) LEGS AND HANDS Epinephrine (Epipen 2-Grady) 0.3 Mg/0.3 Ml Inj, 0.3 MG IJ for ANAPHALAXIS, (Reported) Fluocinonide/Emollient Base (Fluocinonide-E 0.05% Cream) 15 Gm Cream..g., 1 APLCT EX DAILY PRN for DRY SKIN, (Reported) LEGS AND HANDS Metaxalone (Skelaxin) 800 Mg Tab, 400 MG PO DAILY PRN for PAIN, (Reported) MAY TAKE WHOLE TABLET Sumatriptan Succinate (Sumatriptan Succinate) 100 Mg Tab, 100 MG PO PRN PRN for MIGRAINE, (Reported) Allergies Coded Allergies: NUTS (Verified Allergy, Severe, RASH AND ITCHY THROAT, 11/04/19) POLLEN (Verified Allergy, Severe, RASH AND THROAT CLOSES, 11/04/19) SEAFOOD (Verified Allergy, Severe, RASH AND THROAT CLOSES, 11/04/19) Wheat (Verified Allergy, Severe, ITCHY THROAT, THROAT CLOSES, 11/04/19) chlorthalidone (Verified Allergy, Mild, RASH, 11/04/19) morphine (Verified Adverse Reaction, Mild, STOMACH PAINS, 11/04/19) STACEY CRUMP MD Jun 09, 2020 18:07
== END 2020-06-09 15:54 | disposition home or self-care (01) | DRG 392 ==
LOC: M ED 20:48 → M ED INP 06-07 02:25 → M ICU 06-07 06:27 → M MSPAV 06-07 12:01
PROVIDERS: ADMIT Internal Medicine; ATTEND Family Medicine
DX: K57.32 Diverticulitis of large intestine without perforation or abscess without bleeding (principal); K58.1 Irritable bowel syndrome with constipation; R73.03 Prediabetes; I10 Essential (primary) hypertension; E03.9 Hypothyroidism, unspecified; J45.909 Unspecified asthma, uncomplicated; K21.9 Gastro-esophageal reflux disease without esophagitis; G43.909 Migraine, unspecified, not intractable, without status migrainosus; G47.33 Obstructive sleep apnea (adult) (pediatric); E66.9 Obesity, unspecified; Z68.31 Body mass index [BMI] 31.0-31.9, adult; Z79.82 Long term (current) use of aspirin; Z79.899 Other long term (current) drug therapy; Z88.5 Allergy status to narcotic agent; Z88.8 Allergy status to other drugs, medicaments and biological substances; Z91.018 Allergy to other foods; Z91.013 Allergy to seafood; Z86.19 Personal history of other infectious and parasitic diseases

== ENCOUNTER 2020-09-07 08:03 | Day surgery (SDC) | payer OTHER ==
[~2020-09-07] VITALS: Ht 162.6 cm; Wt 79.4 kg
[~2020-09-07 08:03] MED LIST changes: +ACET1TAB55 PO; +ALIG4CAP PO; +AUGM875T28 PO; +DIVA500T9 PO; +GABA-282 PO; -GABA-843 PO; +HYOS0.1214 PO; +LEVO137T2 PO; +LIDOCAINE 2% 100MG/5ML SDV (FOR ANES.) As Ordered ONE; +LOSA100T5 PO; +METF500T13 PO; +MONT10TA10 PO; -MONT5TAB2 PO; +NS 1,000 ML IV ONE; +OLOP0.1D OU; +PREM0.9T PO; +propofoL 200 MG/20 ML VIAL As Ordered ONE
--- NOTE | 2020-09-07 09:28 | ROOR ---
Patient Name: Melida Ortiz Procedure Date: 09/07/2020 9:01 AM Date of : 1970 Age: 50 Room: [facility] Gender: Female Note Status: Finalized Procedure: Colonoscopy Indications: Abnormal CT of the GI tract (CT 06/07/20: "diverticulitis of cecum with surrounding edema in ascending colon and ileum--rec GI eval") Providers: Joseluis REYES MD Referring MD: LISA GONZALEZ MD Requesting Provider: Medicines: Monitored Anesthesia Care Complications: No immediate complications. Procedure: Pre-Anesthesia Assessment: - The heart rate, respiratory rate, oxygen saturations, blood pressure, adequacy of pulmonary ventilation, and response to care were monitored throughout the procedure. The Colonoscope was introduced through the anus and advanced to 10 cm into the ileum. The colonoscopy was performed without difficulty. The patient tolerated the procedure well. The quality of the bowel preparation was good. Findings: Skin tags were found on perianal exam. A few small-mouthed diverticula were found in the sigmoid colon and ascending colon. Internal hemorrhoids were found during retroflexion. The hemorrhoids were moderate. Retroflexion in the right colon was performed. The exam was otherwise normal throughout the examined colon. The terminal ileum appeared normal. Impression: - Perianal skin tags found on perianal exam. - Mild diverticulosis in the sigmoid colon and in the proximal ascending colon. - Internal hemorrhoids. - The colon is otherwise normal. - The examined portion of the ileum was normal. - No specimens collected. Recommendation: - Continue present medications. Procedure Code(s): --- Professional --- 32734, Colonoscopy, flexible; diagnostic, including collection of specimen(s) by brushing or washing, when performed (separate procedure) Diagnosis Code(s): --- Professional --- R93.3, Abnormal findings on diagnostic imaging of other parts of digestive tract K57.30, Diverticulosis of large intestine without perforation or abscess without bleeding K64.4, Residual hemorrhoidal skin tags K64.8, Other hemorrhoids CPT copyright 2019 [employer]. All rights reserved. The codes documented in this report are preliminary and upon superintendent job review may be revised to meet current compliance requirements. Joseluis Reyes MD Joseluis REYES MD 09/07/2020 9:28:26 AM Electronically signed by Joseluis REYES MD Number of Addenda: 0 Note Initiated On: 09/07/2020 9:01 AM Estimated Blood Loss: Estimated blood loss: none.
[2020-09-07 09:40] VITALS: BP 132/87
== END 2020-09-07 09:44 | disposition home or self-care (01) ==
LOC: M OPP 08:03
PROVIDERS: ATTEND Internal Medicine Gastroenterology
DX: K57.30 Diverticulosis of large intestine without perforation or abscess without bleeding (principal); K64.8 Other hemorrhoids; K64.4 Residual hemorrhoidal skin tags; E11.9 Type 2 diabetes mellitus without complications; R93.3 Abnormal findings on diagnostic imaging of other parts of digestive tract; Z79.899 Other long term (current) drug therapy; Z88.5 Allergy status to narcotic agent; Z91.013 Allergy to seafood; Z91.018 Allergy to other foods; Z85.850 Personal history of malignant neoplasm of thyroid

== ENCOUNTER → 2020-11-20 | Outpatient (REF) | payer OTHER ==
[~2020-11-20] MED LIST changes: +GABA-283 PO; -GABA-845 PO; -LIDOCAINE 2% 100MG/5ML SDV (FOR ANES.) As Ordered ONE; -NS 1,000 ML IV ONE; -propofoL 200 MG/20 ML VIAL As Ordered ONE
== END ==
LOC: M WUC 17:46
PROVIDERS: ATTEND Physician Assistant
DX: J00 Acute nasopharyngitis [common cold] (principal)

== ENCOUNTER 2020-12-13 12:26 | Emergency (ER) | payer OTHER ==
[~2020-12-13] VITALS: Ht 162.6 cm; Wt 82.3 kg
[2020-12-13 13:00] LABS: BASO % 0.3 % (0.0-1.0); EOS # 0.1 10^3/uL (0.0-0.5); EOS % 1.4 % (0.0-3.0); HEMATOCRIT 44.7 % (36.0-47.0); HEMOGLOBIN 14.2 g/dl (12.0-15.5); LYMPH # 2.6 10^3/uL (1.5-5.0); LYMPH % 39.5 % (24.0-44.0); MEAN CORPUSCULAR HEMOGLOBIN 26.7 pg (27.0-33.0); MEAN CORPUSCULAR HGB CONC 31.8 g/dl (32.0-36.5); MONO # 0.4 10^3/uL (0.0-0.8); MONO % 6.3 % (2.0-8.0); NEUTROPHILS # 3.5 10^3/uL (1.5-8.5); NEUTROPHILS % 52.3 % (36.0-66.0); PLATELET COUNT, AUTOMATED 266 10^3/uL (150-450); RED BLOOD COUNT 5.32 10^6/uL (4.00-5.40); WHITE BLOOD COUNT 6.6 10^3/uL (4.0-10.0)
--- NOTE | 2020-12-13 13:14 | REP ---
INDICATION: CHEST PAIN COMPARISON: 03/11/2020 TECHNIQUE: Portable AP view of the chest FINDINGS: The mediastinum and cardiac silhouette are stable and within normal limits for portable technique. The lung hess are clear without acute consolidation, effusion, or pneumothorax. Skeletal structures are intact. IMPRESSION: No acute cardiopulmonary process appreciated. <Electronically signed by Asif De La Garza > 12/13/20 [id number]
[2020-12-13] MEDS ORDERED: HYOSCYAMINE SULFATE 0.125 MG SUBL TABLET PO ONE (13:15)
[2020-12-13] MEDS ORDERED: ASPIRIN 81 MG CHEW TABLET PO ONE (13:20)
[2020-12-13 13:37] LABS: ALBUMIN 3.6 GM/DL (3.2-5.2); ALT/SGPT 23 U/L (12-78); BILIRUBIN,DIRECT 0.1 MG/DL (0.0-0.2); BILIRUBIN,TOTAL 0.3 MG/DL (0.2-1.0); BLOOD UREA NITROGEN 14 MG/DL (7-18); CALCIUM LEVEL 9.2 MG/DL (8.5-10.1); CARBON DIOXIDE LEVEL 25 MEQ/L (21-32); CHLORIDE LEVEL 100 MEQ/L (98-107); GLOMERULAR FILTRATION RATE > 60.0 (>58); GLUCOSE, FASTING 138 MG/DL (70-100); LIPASE 102 U/L (73-393); NT-PRO BNP 20 PG/ML (<125); POTASSIUM SERUM 3.6 MEQ/L (3.5-5.1); SODIUM LEVEL 137 MEQ/L (136-145); THYROID STIMULATING HORMONE 0.281 uIU/ML (0.358-3.740); TOTAL PROTEIN 7.9 GM/DL (6.4-8.2)
[2020-12-13 16:41] VITALS: BP 141/68
[2020-12-13 16:59] LABS: CK-MB VALUE MASS < 1.0 NG/ML (<3.6); CPK CREATINE PHOSPHOKINASE 86 U/L (26-192); MB/CK RELATIVE INDEX 1.16 (< OR =4); TROPONIN I < 0.02 NG/ML (< 0.10)
--- NOTE | 2020-12-13 22:43 | ECGEPIP ---
[facility] - ED Test Date: 2020-12-13 Pat Name: HIEU DYER Department: Room: - Gender: Female Proof Sorter: HC : 1970 Requested By: [place] Owens Order Number: [id number] Reading MD: Joseluis Garcia Measurements Intervals [place] Rate: 72 P: 11 TX: 182 QRS: -24 QRSD: 94 T: 12 QT: 420 QTc: 459 Interpretive Statements Normal sinus rhythm Moderate voltage criteria for LVH, may be normal variant Nonspecific ST-T wave abnormalities Similar to tracing done 03-11-20 Electronically Signed on 12-13-2020 22:43:33 EDT by Joseluis Garcia
== END 2020-12-13 17:32 | disposition home or self-care (01) ==
LOC: M ED 12:26
DX: R07.89 Other chest pain (principal); E11.9 Type 2 diabetes mellitus without complications; I10 Essential (primary) hypertension; E03.9 Hypothyroidism, unspecified; J45.909 Unspecified asthma, uncomplicated; J30.1 Allergic rhinitis due to pollen; Z79.890 Hormone replacement therapy; Z79.84 Long term (current) use of oral hypoglycemic drugs; Z79.899 Other long term (current) drug therapy; Z91.010 Allergy to peanuts; Z91.013 Allergy to seafood; Z91.018 Allergy to other foods; Z88.5 Allergy status to narcotic agent; Z88.8 Allergy status to other drugs, medicaments and biological substances

== ENCOUNTER → 2021-01-28 | Outpatient (CLI) | payer OTHER ==
--- NOTE | 2021-01-28 20:12 | ECHO ---
ECHOCARDIOGRAM DATE OF PROCEDURE: 01/28/2021 Age: Gender: Female Height: 163 cm Weight: 82 kg REFERRING PHYSICIAN: Elmer Alvarado INDICATION: Syncope. MEASUREMENTS: IVS 1.0 LV 4.4 LVPW 1.0 LA 3.6 Aorta 3.8 Mitral E wave velocity 81 A wave 76 E prime septal 5.4 E prime lateral 7.5 Left atrial volume index 28 FINDINGS: This study is of acceptable technical quality. Underlying sinus rhythm. Left ventricle is of normal size and has normal systolic function with estimated left ventricular ejection fraction (LVEF) OF 60-65%. No segmental wall motion abnormalities are appreciated. Normal right ventricular (RV) size and systolic function. Both atria appear normal. Aortic valve is tricuspid and has normal opening with systole. Mitral, tricuspid and pulmonic valves also appear structurally normal. No pericardial effusion is noted. Inferior vena cava is normal size. Aortic root appears normal. Limited views of aortic arch and abdominal aorta also appear normal. Doppler interrogation reveals competent aortic valve. There is trace mitral, tricuspid and pulmonic insufficiency. Unfortunately, quality of TR jet was not sufficient to estimate pulmonary artery pressure. Mitral inflow pattern and tissue Doppler imaging of the mitral annulus reveal probably normal diastolic function, even though tissue Doppler studies of mitral annulus are mildly reduced. CONCLUSIONS: 1. Study is of acceptable technical quality. Underlying sinus rhythm. 2. Normal left ventricular (LV) size with preserved LV systolic and probably also diastolic function. 3. No significant valvular disease. 4. Normal central venous pressure. 5. Unable to estimate pulmonary artery pressure, but no signs to suggest pulmonary hypertension. 6. No findings to explain etiology of syncope.
== END ==
LOC: M CARPUL 09:25
PROVIDERS: ATTEND Physician Assistant
DX: R55 Syncope and collapse (principal)

== ENCOUNTER → 2021-02-01 | Outpatient (CLI) | payer OTHER ==
--- NOTE | 2021-02-01 08:50 | REPVR ---
PROCEDURE INFORMATION: Exam: CT Neck With Contrast Exam date and time: 02/01/2021 8:31 AM Age: 50 years old Clinical indication: Pain; Other: Dental infection, lump under RT ear neck soft tissue TECHNIQUE: Imaging protocol: Computed tomography images of the neck with contrast. Radiation optimization: All CT scans at this facility use at least one of these dose optimization techniques: automated exposure control; mA and/or kV adjustment per patient size (includes targeted exams where dose is matched to clinical indication); or iterative reconstruction. Contrast material: ISOVUE 370; Contrast volume: 75 ml; Contrast route: INTRAVENOUS (IV); COMPARISON: CT Neck with contrast 06/27/2019 10:16 AM FINDINGS: Brain: Unremarkable brain for age. Mastoid air cells: Mastoids are well aerated. Paranasal sinuses: No air-fluid levels in the paranasal sinuses. Nasopharynx: Unremarkable. Dental: Artifact from patient's dental hardware. Limited periapical lucencies adjacent to a left mandibular molar. No cortical destruction of the maxilla or mandible. Oropharynx: Stable tonsillar calcifications on the left probably chronic. Hypopharynx: Unremarkable. Larynx: Unremarkable. Normal epiglottis. Retropharyngeal space: Unremarkable. Submandibular/Parotid glands: Small nodes suspected in the left parotid gland. Thyroid: Very diminutive thyroid. Lymph nodes: Small nodes at multiple stations in the neck bilaterally likely reactive. No confluent lymphadenopathy. Trachea: Visualized trachea is unremarkable. Lungs: In the lung apices are clear. Esophagus: Mildly patulous esophagus. Bones/joints: No acute fracture. Vasculature: No venous thrombus. Soft tissues: No dominant neck mass. No rim enhancing abscess. IMPRESSION: Limited dental disease without rim enhancing abscess, dominant neck mass, or confluent lymphadenopathy. Electronically signed by: Sunny Burden On 02/01/2021 08:49:37 AM
== END ==
LOC: M RAD 07:50
PROVIDERS: ATTEND Specialist
DX: K04.7 Periapical abscess without sinus (principal)

== ENCOUNTER → 2021-02-01 | Outpatient (CLI) | payer OTHER ==
[~2021-02-01] MED LIST changes: +ISOVUE-370 76% 100ML VIAL As Ordered ONE
--- NOTE | 2021-02-01 10:16 | REP ---
INDICATION: VVI PT HAS CT 1ST COMPARISON: None. TECHNIQUE: Guy scale and color Doppler evaluation using linear high frequency transducer including reflux evaluation. FINDINGS: Ultrasound examination of the right and left lower extremity deep venous structures from the common femoral vein through the calf/ankle to include the peroneal, and tibial veins demonstrates normal compressibility flow and wave patterns in response to respiration and augmentation. There is no evidence for deep venous thrombosis. Right and left lower extremities demonstrate no evidence for reflux disease. Few scattered bilateral collateral vessels from the right and left greater saphenous veins are noted along with mildly decreased flow velocities. IMPRESSION: No evidence for deep venous thrombosis. No evidence for reflux. As above. <Electronically signed by Asif De La Garza > 02/01/21 [id number]
== END ==
LOC: M RAD 08:00
PROVIDERS: ATTEND Surgery Vascular Surgery
DX: I87.2 Venous insufficiency (chronic) (peripheral) (principal)

== ENCOUNTER 2021-02-05 09:55 | Emergency (ER) | payer OTHER ==
[~2021-02-05] VITALS: Ht 162.6 cm; Wt 89.4 kg
[~2021-02-05 09:55] MED LIST changes: -ISOVUE-370 76% 100ML VIAL As Ordered ONE
[2021-02-05 09:56] VITALS: BP 136/71
[2021-02-05] MEDS ORDERED: DOCU100C16 (10:13)
[2021-02-05] MEDS ORDERED: CELE1CAP9 (10:13)
[2021-02-05] MEDS ORDERED: ONDA-83 (10:13)
[2021-02-05] MEDS ORDERED: PARO20TA3 (10:13)
[2021-02-05] MEDS ORDERED: GABA-282 (10:13)
[2021-02-05] MEDS ORDERED: OXYC-517 PO ×2 (12:19→12:20)
== END 2021-02-05 12:30 | disposition home or self-care (01) ==
LOC: M ED 09:55
DX: Z76.0 Encounter for issue of repeat prescription (principal); G89.28 Other chronic postprocedural pain; M25.512 Pain in left shoulder; E11.9 Type 2 diabetes mellitus without complications; I10 Essential (primary) hypertension; G47.30 Sleep apnea, unspecified; G43.909 Migraine, unspecified, not intractable, without status migrainosus; J30.1 Allergic rhinitis due to pollen; Z86.16 Personal history of COVID-19; Z85.850 Personal history of malignant neoplasm of thyroid; Z86.79 Personal history of other diseases of the circulatory system; Z79.899 Other long term (current) drug therapy; Z91.010 Allergy to peanuts; Z91.013 Allergy to seafood; Z91.018 Allergy to other foods; Z88.5 Allergy status to narcotic agent

== ENCOUNTER 2022-02-16 20:37 | Emergency (ER) | payer OTHER ==
[~2022-02-16] VITALS: Ht 162.6 cm; Wt 81.8 kg
[~2022-02-16 20:37] MED LIST changes: +CELE1CAP9; +DOCU100C16; +GABA-282; +LOSA25TA13 PO; -LOSA25TA14 PO; +LOSA50TA28 PO; -LOSA50TA88 PO; -MONT10TA10 PO; +MONT10TA97 PO; -OLOP0.1D OU; +OLOP5DRO16 OU; +ONDA-83; +OXYC-517 PO; +PARO20TA3
[2022-02-16 21:15] LABS: BASO % 0.3 % (0.0-1.0); EOS # 0.2 10^3/uL (0.0-0.5); EOS % 1.6 % (0.0-3.0); HEMATOCRIT 42.4 % (36.0-47.0); HEMOGLOBIN 13.6 g/dl (12.0-15.5); LYMPH # 4.9 10^3/uL (1.5-5.0); LYMPH % 50.8 % (24.0-44.0); MEAN CORPUSCULAR HEMOGLOBIN 26.3 pg (27.0-33.0); MEAN CORPUSCULAR HGB CONC 32.1 g/dl (32.0-36.5); MONO # 0.8 10^3/uL (0.0-0.8); MONO % 7.9 % (2.0-8.0); NEUTROPHILS # 3.8 10^3/uL (1.5-8.5); NEUTROPHILS % 39.2 % (36.0-66.0); PLATELET COUNT, AUTOMATED 261 10^3/uL (150-450); RED BLOOD COUNT 5.17 10^6/uL (4.00-5.40); WHITE BLOOD COUNT 9.7 10^3/uL (4.0-10.0)
[2022-02-16 21:41] LABS: INR 0.9; PROTHROMBIN TIME 12.5 SECONDS (12.7-14.5)
[2022-02-16 21:44] LABS: D-DIMER QUANT 639.2 ng/ml (<500)
[2022-02-16 22:07] LABS: MB/CK RELATIVE INDEX 0.91 (< OR =4)
[2022-02-16 22:12] LABS: ALBUMIN 3.5 GM/DL (3.2-5.2); ALT/SGPT 47 U/L (12-78); BILIRUBIN,DIRECT < 0.1 MG/DL (0.0-0.2); BILIRUBIN,TOTAL 0.2 MG/DL (0.2-1.0); BLOOD UREA NITROGEN 9 MG/DL (7-18); CALCIUM LEVEL 9.1 MG/DL (8.5-10.1); CARBON DIOXIDE LEVEL 28 MEQ/L (21-32); CHLORIDE LEVEL 105 MEQ/L (98-107); GLOMERULAR FILTRATION RATE > 60.0 (>51); GLUCOSE, FASTING 144 MG/DL (70-100); LIPASE 154 U/L (73-393); NT-PRO BNP 13 PG/ML (<125); POTASSIUM SERUM 3.9 MEQ/L (3.5-5.1); SODIUM LEVEL 140 MEQ/L (136-145); THYROID STIMULATING HORMONE 0.104 uIU/ML (0.358-3.740); TOTAL PROTEIN 7.6 GM/DL (6.4-8.2)
[2022-02-16] MEDS ORDERED: ISOVUE-370 76% 100ML VIAL As Ordered ONE (22:33)
[2022-02-16 22:52] LABS: CK-MB VALUE MASS < 1.0 NG/ML (<3.6); CPK CREATINE PHOSPHOKINASE 119 U/L (26-192); MB/CK RELATIVE INDEX 0.84 (< OR =4)
[2022-02-17 00:40] VITALS: BP 118/61
== END 2022-02-17 00:43 | disposition home or self-care (01) ==
LOC: M ED 20:37
DX: R07.9 Chest pain, unspecified (principal); R94.6 Abnormal results of thyroid function studies; E11.9 Type 2 diabetes mellitus without complications; G47.33 Obstructive sleep apnea (adult) (pediatric); I10 Essential (primary) hypertension; J45.909 Unspecified asthma, uncomplicated; Z79.84 Long term (current) use of oral hypoglycemic drugs; Z85.850 Personal history of malignant neoplasm of thyroid; Z88.6 Allergy status to analgesic agent; Z88.8 Allergy status to other drugs, medicaments and biological substances; Z91.010 Allergy to peanuts; Z91.018 Allergy to other foods; Z90.89 Acquired absence of other organs; Z91.013 Allergy to seafood
CPT/HCPCS: 36415; 71046; 71275; 80048; 80076; 82550; 82553; 83690; 83880; 84443; 84484; 85025; 85379; 85610; 85730; 93005; 99284; Q9967

== ENCOUNTER 2022-03-10 12:14 | Emergency (ER) | payer OTHER ==
[~2022-03-10] VITALS: Ht 162.6 cm; Wt 82.7 kg
[2022-03-10] MEDS ORDERED: ACETAMINOPHEN 325 MG TAB PO ONE (13:30)
[2022-03-10 13:44] LABS: BASO % 0.4 % (0.0-1.0); EOS # 0.2 10^3/uL (0.0-0.5); EOS % 2.1 % (0.0-3.0); HEMATOCRIT 43.8 % (36.0-47.0); HEMOGLOBIN 13.9 g/dl (12.0-15.5); LYMPH # 3.5 10^3/uL (1.5-5.0); LYMPH % 48.5 % (24.0-44.0); MEAN CORPUSCULAR HEMOGLOBIN 25.8 pg (27.0-33.0); MEAN CORPUSCULAR HGB CONC 31.7 g/dl (32.0-36.5); MEAN CORPUSCULAR VOLUME 81.3 fl (80.0-96.0); MONO # 0.5 10^3/uL (0.0-0.8); MONO % 7.3 % (2.0-8.0); NEUTROPHILS % 41.6 % (36.0-66.0); PLATELET COUNT, AUTOMATED 267 10^3/uL (150-450); RED BLOOD COUNT 5.39 10^6/uL (4.00-5.40); WHITE BLOOD COUNT 7.2 10^3/uL (4.0-10.0)
[2022-03-10 14:17] LABS: CK-MB VALUE MASS < 1.0 NG/ML (<3.6); CPK CREATINE PHOSPHOKINASE 86 U/L (26-192); MB/CK RELATIVE INDEX 1.16 (< OR =4)
[2022-03-10 14:35] LABS: ALBUMIN 3.7 GM/DL (3.2-5.2); ALT/SGPT 49 U/L (12-78); BILIRUBIN,DIRECT 0.1 MG/DL (0.0-0.2); BILIRUBIN,TOTAL 0.4 MG/DL (0.2-1.0); BLOOD UREA NITROGEN 13 MG/DL (7-18); CALCIUM LEVEL 9.7 MG/DL (8.5-10.1); CARBON DIOXIDE LEVEL 28 MEQ/L (21-32); CHLORIDE LEVEL 102 MEQ/L (98-107); CREATININE FOR GFR 0.67 MG/DL (0.55-1.30); FREE T4 1.23 NG/DL (0.76-1.46); GLOMERULAR FILTRATION RATE > 60.0 (>51); GLUCOSE, FASTING 119 MG/DL (70-100); LIPASE 153 U/L (73-393); NT-PRO BNP 19 PG/ML (<125); POTASSIUM SERUM 3.8 MEQ/L (3.5-5.1); SODIUM LEVEL 135 MEQ/L (136-145); THYROID STIMULATING HORMONE 0.099 uIU/ML (0.358-3.740); TOTAL PROTEIN 8.3 GM/DL (6.4-8.2)
[2022-03-10 15:18] LABS: CK-MB VALUE MASS < 1.0 NG/ML (<3.6); CPK CREATINE PHOSPHOKINASE 92 U/L (26-192); MB/CK RELATIVE INDEX 1.09 (< OR =4)
[2022-03-10 16:00] VITALS: BP 113/70
== END 2022-03-10 16:11 | disposition home or self-care (01) ==
LOC: M ED 12:14
DX: R55 Syncope and collapse (principal); R07.9 Chest pain, unspecified; R51.9 Headache, unspecified; M48.02 Spinal stenosis, cervical region; E11.9 Type 2 diabetes mellitus without complications; J45.909 Unspecified asthma, uncomplicated; E03.9 Hypothyroidism, unspecified; K21.9 Gastro-esophageal reflux disease without esophagitis; Z88.5 Allergy status to narcotic agent; Z91.010 Allergy to peanuts; Z91.013 Allergy to seafood; Z91.018 Allergy to other foods; Z79.84 Long term (current) use of oral hypoglycemic drugs; Z79.890 Hormone replacement therapy; Z79.899 Other long term (current) drug therapy; Z79.51 Long term (current) use of inhaled steroids

== ENCOUNTER 2022-07-02 17:01 | Emergency (ER) | payer OTHER ==
[~2022-07-02] VITALS: Ht 162.6 cm; Wt 81.1 kg
[2022-07-02] MEDS ORDERED: DICYCLOMINE INJ 20MG/2ML (J0500) IM ONE (18:25)
[2022-07-02 18:32] LABS: BASO % 0.3 % (0.0-1.0); EOS # 0.1 10^3/uL (0.0-0.5); EOS % 1.6 % (0.0-3.0); HEMATOCRIT 40.4 % (36.0-47.0); HEMOGLOBIN 12.7 g/dl (12.0-15.5); LYMPH # 3.4 10^3/uL (1.5-5.0); LYMPH % 45.5 % (24.0-44.0); MEAN CORPUSCULAR HEMOGLOBIN 26.1 pg (27.0-33.0); MEAN CORPUSCULAR HGB CONC 31.4 g/dl (32.0-36.5); MONO # 0.9 10^3/uL (0.0-0.8); MONO % 11.7 % (2.0-8.0); NEUTROPHILS # 3.1 10^3/uL (1.5-8.5); NEUTROPHILS % 40.8 % (36.0-66.0); PLATELET COUNT, AUTOMATED 259 10^3/uL (150-450); RED BLOOD COUNT 4.87 10^6/uL (4.00-5.40); WHITE BLOOD COUNT 7.5 10^3/uL (4.0-10.0)
[2022-07-02] MEDS: GASTROGRAFIN SOLUTION 30ML PO SCH ×2 (18:53→19:21)
[2022-07-02 18:57] LABS: BLOOD UREA NITROGEN 14 MG/DL (9-23); CALCIUM LEVEL 8.8 MG/DL (8.5-10.1); CARBON DIOXIDE LEVEL 27 MMOL/L (20-31); CHLORIDE LEVEL 103 MMOL/L (98-107); CREATININE FOR GFR 0.54 MG/DL (0.55-1.30); GLOMERULAR FILTRATION RATE > 60.0 (>51); GLUCOSE, FASTING 185 MG/DL (60-100); POTASSIUM SERUM 3.9 MMOL/L (3.5-5.1); SODIUM LEVEL 139 MMOL/L (136-145)
[2022-07-02] MEDS ORDERED: ISOVUE-370 76% 100ML VIAL As Ordered ONE (20:01)
[2022-07-02] MEDS ORDERED: SYNT100T PO (20:38)
[2022-07-02] MEDS ORDERED: AMLO2.5T3 PO (20:38)
[2022-07-02] MEDS ORDERED: HYDR12CA PO (20:38)
[2022-07-02] MEDS ORDERED: META1TAB22 PO (20:38)
[2022-07-02 21:45] VITALS: BP 127/68
== END 2022-07-02 22:06 | disposition home or self-care (01) ==
LOC: M ED 17:01
DX: K59.00 Constipation, unspecified (principal); E11.9 Type 2 diabetes mellitus without complications; K58.1 Irritable bowel syndrome with constipation; Z86.19 Personal history of other infectious and parasitic diseases; K57.30 Diverticulosis of large intestine without perforation or abscess without bleeding; J30.1 Allergic rhinitis due to pollen; Z79.890 Hormone replacement therapy; Z79.84 Long term (current) use of oral hypoglycemic drugs; Z79.899 Other long term (current) drug therapy; Z88.5 Allergy status to narcotic agent; Z88.8 Allergy status to other drugs, medicaments and biological substances; Z91.010 Allergy to peanuts; Z91.013 Allergy to seafood; Z91.018 Allergy to other foods
CPT/HCPCS: 74177; 80048; 81002; 85025; 96372; 99284; J0500

== ENCOUNTER 2022-07-24 12:38 | Day surgery (SDC) | payer OTHER ==
[~2022-07-24] VITALS: Ht 162.6 cm; Wt 82.3 kg
[~2022-07-24 12:38] MED LIST changes: +AMLO2.5T3 PO; +HYDR12CA PO; +META1TAB22 PO; +NS 1,000 ML IV ONE; +SYNT100T PO
[2022-07-24] MEDS ORDERED: fentaNYL 100 MCG/2 ML INJECTION As Ordered ONE (13:40)
[2022-07-24] MEDS ORDERED: LIDOCAINE 2% 100MG/5ML SDV (FOR ANES.) As Ordered ONE (13:40)
[2022-07-24] MEDS ORDERED: propofoL 200 MG/20 ML VIAL As Ordered ONE (13:40)
[2022-07-24 14:06] VITALS: BP 129/78
== END 2022-07-24 14:21 | disposition home or self-care (01) ==
LOC: M OPP 12:38
PROVIDERS: ATTEND Internal Medicine Gastroenterology
DX: K31.89 Other diseases of stomach and duodenum (principal); R11.0 Nausea; I10 Essential (primary) hypertension; E11.9 Type 2 diabetes mellitus without complications; E03.2 Hypothyroidism due to medicaments and other exogenous substances; J45.909 Unspecified asthma, uncomplicated; G47.33 Obstructive sleep apnea (adult) (pediatric); Z99.89 Dependence on other enabling machines and devices; I67.1 Cerebral aneurysm, nonruptured; Z79.2 Long term (current) use of antibiotics; Z79.52 Long term (current) use of systemic steroids; Z79.84 Long term (current) use of oral hypoglycemic drugs; Z79.890 Hormone replacement therapy; Z79.891 Long term (current) use of opiate analgesic; Z79.899 Other long term (current) drug therapy; Z88.5 Allergy status to narcotic agent; Z91.013 Allergy to seafood; Z91.018 Allergy to other foods
CPT/HCPCS: 43239; 88305; J3010

== ENCOUNTER → 2022-08-01 | Outpatient (CLI) | payer OTHER ==
[~2022-08-01] MED LIST changes: -NS 1,000 ML IV ONE
== END ==
LOC: M SOG 08:11
PROVIDERS: ATTEND Orthopaedic Surgery
DX: M54.50 Low back pain, unspecified (principal)

== ENCOUNTER → 2022-08-04 | Outpatient (CLI) | payer OTHER | LOC: M PLAIMG 13:07 | PROVIDERS: ATTEND Orthopaedic Surgery | DX: M54.59 Other low back pain (principal) ==

== ENCOUNTER 2024-02-13 09:47 | Emergency (ER) | payer OTHER ==
[~2024-02-13] VITALS: Ht 162.6 cm; Wt 86.0 kg
[~2024-02-13 09:47] MED LIST changes: -ASPE16CR TOP; +CELE0.09; -CELE1CAP9; +DICY-61 PO; -DICY10CA13 PO; -GABA-283 PO; +GABA-284 PO; -HYZA100T6 PO; +LIDO76.52 TOP; +LOSA-536 PO; -OLOP5DRO16 OU; +OLOP5DRO17 OU
[2024-02-13] MEDS ORDERED: METHOCARBAMOL 1,000 MG/10 ML VIAL IV ONE (11:25)
[2024-02-13] MEDS: KETOROLAC 30 MG/ML 1ML VIAL IV ONE (11:50)
[2024-02-13] MEDS: diazePAM 10MG/2ML SYRINGE IV ONE (11:51)
[2024-02-13 14:38] VITALS: BP 123/79; TEMP 96.9; O2SAT 94
[2024-02-13] MEDS ORDERED: MEDR4PAK PO (14:59)
== END 2024-02-13 15:16 | disposition home or self-care (01) ==
LOC: M ED 09:47
DX: M54.41 Lumbago with sciatica, right side (principal); M51.36 Other intervertebral disc degeneration, lumbar region; M51.37 Other intervertebral disc degeneration, lumbosacral region; M51.26 Other intervertebral disc displacement, lumbar region; M47.896 Other spondylosis, lumbar region; G95.81 Conus medullaris syndrome; K57.30 Diverticulosis of large intestine without perforation or abscess without bleeding; I10 Essential (primary) hypertension; J45.909 Unspecified asthma, uncomplicated; G43.909 Migraine, unspecified, not intractable, without status migrainosus; Z79.52 Long term (current) use of systemic steroids; Z79.899 Other long term (current) drug therapy; Z79.4 Long term (current) use of insulin; Z91.013 Allergy to seafood; Z88.5 Allergy status to narcotic agent; Z91.010 Allergy to peanuts; Z86.16 Personal history of COVID-19
CPT/HCPCS: 72148; 96374; 96375; 99284; J1885; J3360

== ENCOUNTER → 2024-02-20 | Outpatient (CLI) | payer OTHER ==
[~2024-02-20] MED LIST changes: +MEDR4PAK PO
== END ==
LOC: M RAD 13:44
PROVIDERS: ATTEND Internal Medicine
DX: R42 Dizziness and giddiness (principal)

== ENCOUNTER → 2024-04-11 | Outpatient (REF) | payer OTHER ==
[~2024-04-11] MED LIST changes: +GABA-1172; +GABA-1172 PO; -GABA-282; -GABA-282 PO
[2024-04-11 14:34] LABS: APPEARANCE, URINE CLEAR (CLEAR); BACTERIA, URINE AUTO NEGATIVE (NEGATIVE); BILIRUBIN, URINE AUTO NEGATIVE (NEGATIVE); BLOOD, URINE BLOOD NEGATIVE (NEGATIVE); COLOR, URINE YELLOW (YELLOW); GLUCOSE, URINE (UA) AUTO NEGATIVE (NEGATIVE); KETONE, URINE AUTO NEGATIVE (NEGATIVE); LEUKOCYTE ESTERASE, URINE AUTO NEGATIVE (NEGATIVE); NITRITE, URINE AUTO NEGATIVE (NEGATIVE); PROTEIN, URINE AUTO NEGATIVE (NEGATIVE); RBC, URINE AUTO 0 /HPF (0-3); SPECIFIC GRAVITY URINE AUTO 1.012 (1.002-1.035); SQUAMOUS EPITHELIAL CELL UR AU 0 /HPF (0-6); UROBILINOGEN, URINE AUTO 0.2 mg/dL (0.0-2.0); WBC, URINE AUTO 0 /HPF (0-3)
== END ==
LOC: M SMT 13:12
PROVIDERS: ATTEND Specialist
DX: N39.46 Mixed incontinence (principal)

== ENCOUNTER → 2024-06-16 | Outpatient (CLI) | payer OTHER ==
[~2024-06-16] MED LIST changes: +E-Z-GAS II EFFERVESCENT PACKET (SODIUM BICARB./CITRIC ACID/SIMETHICONE) As Ordered ONE; +E-Z-HD 98% w/w 340GM SUSP BTL As Ordered ONE; +E-Z-PAQUE 96% w/w SUSP 176GM BTL As Ordered ONE; -HYOS0.1214 PO; +HYOS0.1282 PO; +ISOVUE-370 76% 100ML VIAL As Ordered ONE; +META-10 PO; -META1TAB22 PO
== END ==
LOC: M RAD 07:38
PROVIDERS: ATTEND Otolaryngology
DX: R13.10 Dysphagia, unspecified (principal)

== ENCOUNTER → 2024-07-04 | Outpatient (CLI) | payer OTHER ==
[~2024-07-04] MED LIST changes: -ALIG4CAP PO; +ALIG4CAP3 PO; -E-Z-GAS II EFFERVESCENT PACKET (SODIUM BICARB./CITRIC ACID/SIMETHICONE) As Ordered ONE; -E-Z-HD 98% w/w 340GM SUSP BTL As Ordered ONE; -E-Z-PAQUE 96% w/w SUSP 176GM BTL As Ordered ONE; -ISOVUE-370 76% 100ML VIAL As Ordered ONE
== END ==
LOC: M RAD 09:30
PROVIDERS: ATTEND Student in an Organized Health Care Education/Training Program
DX: R10.12 Left upper quadrant pain (principal); I83.90 Asymptomatic varicose veins of unspecified lower extremity; K76.0 Fatty (change of) liver, not elsewhere classified; R16.0 Hepatomegaly, not elsewhere classified; K57.30 Diverticulosis of large intestine without perforation or abscess without bleeding

== ENCOUNTER → 2024-09-23 | Outpatient (CLI) | payer OTHER | LOC: M RAD 14:06 | PROVIDERS: ATTEND Otolaryngology | DX: Z85.850 Personal history of malignant neoplasm of thyroid (principal) ==

== ENCOUNTER 2024-09-30 12:14 | Emergency (ER) | payer OTHER ==
[~2024-09-30] VITALS: Ht 162.6 cm; Wt 87.3 kg
[2024-09-30 15:39] VITALS: BP 159/95; TEMP 97.3; O2SAT 98
== END 2024-09-30 16:08 | disposition left against medical advice (07) ==
LOC: M ED 12:14
DX: Z53.21 Procedure and treatment not carried out due to patient leaving prior to being seen by health care provider (principal)

== ENCOUNTER → 2025-01-19 | Outpatient (CLI) | payer OTHER ==
[~2025-01-19] MED LIST changes: +DIVA-41 PO; -DIVA500T94 PO; +HYDR12.510 PO; -HYDR12CA PO
[2025-01-19 18:12] LABS: CREATININE FOR GFR 0.73 MG/DL (0.55-1.30); GLOMERULAR FILTRATION RATE > 90.0 (>51)
== END ==
LOC: M LAB 17:02
PROVIDERS: ATTEND Otolaryngology
DX: Z85.850 Personal history of malignant neoplasm of thyroid (principal)

== ENCOUNTER → 2025-01-22 | Outpatient (CLI) | payer OTHER ==
[~2025-01-22] MED LIST changes: +ISOVUE-370 76% 100 ML VIAL As Ordered ONE
== END ==
LOC: M RAD 16:40
PROVIDERS: ATTEND Internal Medicine Gastroenterology
DX: K57.32 Diverticulitis of large intestine without perforation or abscess without bleeding (principal)

== ENCOUNTER → 2025-02-26 | Outpatient (CLI) | payer OTHER ==
[~2025-02-26] MED LIST changes: -ISOVUE-370 76% 100 ML VIAL As Ordered ONE
[2025-02-26 14:07] LABS: CALCIUM LEVEL 9.8 MG/DL (8.5-10.1); CARBON DIOXIDE LEVEL 31 MMOL/L (20-31); CHLORIDE LEVEL 101 MMOL/L (98-107); CREATININE FOR GFR 0.64 MG/DL (0.55-1.30); GLOMERULAR FILTRATION RATE > 90.0 (>51); POTASSIUM SERUM 4.0 MMOL/L (3.5-5.1); SODIUM LEVEL 143 MMOL/L (136-145)
== END ==
LOC: M LAB 12:50
PROVIDERS: ATTEND Nurse Practitioner Family
DX: L50.1 Idiopathic urticaria (principal)

== ENCOUNTER → 2025-04-17 | Outpatient (CLI) | payer OTHER | LOC: M RAD 08:51 | PROVIDERS: ATTEND Internal Medicine Gastroenterology | DX: B18.1 Chronic viral hepatitis B without delta-agent (principal); K76.0 Fatty (change of) liver, not elsewhere classified; R10.11 Right upper quadrant pain; N28.1 Cyst of kidney, acquired ==